=== PATIENT | female | born 1960 | race Caucasian/White ===

== ENCOUNTER → 2019-08-15 15:37 | Outpatient (BNVA) | payer BC, OTHER, SELFPAY | PROVIDERS: Visit Provider Specialist | DX: G31.84 Mild cognitive impairment of uncertain or unknown etiology (principal); F17.210 Nicotine dependence, cigarettes, uncomplicated | CPT/HCPCS: 96116; 99214 ==

== ENCOUNTER 2019-09-05 08:15 | Outpatient (CLI) | payer BC, OTHER, SELFPAY ==
--- NOTE | 2019-09-05 08:21 | CT_ITS ---
WS: [id number] CT ABDOMEN AND PELVIS WITH CONTRAST HISTORY: RIGHT FLANK PAIN, NAUSEA, WT LOSS TECHNIQUE: Imaging performed of the abdomen and pelvis with IV contrast. Single phase imaging of the abdomen. Coronal and sagittal reformats are submitted. All CT scans at [facility] use at least one of these dose optimization techniques: automated exposure control; mA and/or kV adjustment per patient size (includes targeted exams where dose is matched to clinical indication); or iterativ e reconstruction. IV CONTRAST: Omnipaque 300; 95 mL IV. Oral contrast: Yes. DLP: 998.85 mGycm COMPARISON: 07/28/2017 Lower thorax: Chronic emphysema the lung bases. No nodule or mass. Heart is normal size. No hiatal he rnia. Liver/biliary system: Lobulated LEFT hepatic cyst measures 11 mm. Otherwise the liver is negative. No rmal portal vein enhancement. Gallbladder: Normal size gallbladder with numerous stones. No bile duct dilatation. Pancreas: Normal. Spleen: Normal. Adrenal glands: Normal. Right kidney: Normal. Left kidney: Normal. Aorta: Mild atherosclerosis. No aneurysm. Lymphadenopathy: None. Free fluid: None. GI tract: Prior appendectomy. Diffuse fecal retention and constipation. No obstruction. No significan t diverticular disease. Abdominal wall: Unremarkable abdominal wall. No hernia. Pelvis: Atrophic uterus is not well visualized by CT but similar to prior studies. Prominent gonadal veins bilaterally. Bones: Moderate degenerative disc disease at L4-5. Mild degenerative changes at the hip joints. Subch ondral sclerotic changes involving the superior humeral heads probably related to avascular necrosis, similar to the prior study without progression or fragmentation. CT/CT abdomen pelvis w con* [id number] IMPRESSION: 1. Cholelithiasis. Numerous stones in the gallbladder may be causing the patie nt's symptoms. 2. No GI tract obstruction. 3. Prior cholecystectomy. 4. Early changes of avascular necrosis suspected in the femoral heads but unch anged since 07/28/2017. 5. Stable LEFT hepatic cyst.
[2019-09-05] MEDS: iohexol 300 mg/mL 50 mL Btl PO (09:48)
[2019-09-05] MEDS: iohexol 300 mg/mL 100 mL Btl IV (10:06)
== END 2019-09-05 08:16 | disposition home or self-care (01) ==
LOC: RADWPI 08:20
PROVIDERS: Visit Provider Surgery
DX: R10.9 Unspecified abdominal pain (principal); R11.0 Nausea; R63.4 Abnormal weight loss; K80.20 Calculus of gallbladder without cholecystitis without obstruction; K76.89 Other specified diseases of liver
CPT/HCPCS: 74177; Q9967

== ENCOUNTER → 2019-10-31 12:45 | Outpatient (BNVA) | payer BC, OTHER, SELFPAY | PROVIDERS: Visit Provider Specialist | DX: G31.84 Mild cognitive impairment of uncertain or unknown etiology (principal); R56.9 Unspecified convulsions | CPT/HCPCS: 95816 ==

== ENCOUNTER → 2020-01-25 13:57 | Outpatient (BNVA) | payer BC, OTHER, SELFPAY | PROVIDERS: Visit Provider Internal Medicine | DX: E07.9 Disorder of thyroid, unspecified (principal); E53.8 Deficiency of other specified B group vitamins; G31.84 Mild cognitive impairment of uncertain or unknown etiology; R63.4 Abnormal weight loss | CPT/HCPCS: 99204 ==

== ENCOUNTER 2020-01-25 14:45 | Outpatient (CLI) | payer BC, OTHER, SELFPAY ==
[2020-01-25 15:41] LABS: Free T4 Free Thyroxine 1.22 ng/dL (0.82-1.77); Thyroid Stimulating Hormone 1.62 uIU/mL (0.27-4.20)
[2020-01-26 09:43] LABS: T3 Total 110 ng/dL (76-181)
[2020-01-26 17:13] LABS: Thyroglobulin AB 4 IU/mL (< or = 1); Thyroid Peroxidase Antobodies 43 IU/mL (<9)
[2020-01-30 23:03] LABS: TSH Receptor Binding Antibody 1.45 IU/L (< OR = 2.00)
== END 2020-01-25 14:46 | disposition home or self-care (01) ==
LOC: LAB 14:46
PROVIDERS: Visit Provider Internal Medicine
DX: E07.9 Disorder of thyroid, unspecified (principal); G31.84 Mild cognitive impairment of uncertain or unknown etiology
CPT/HCPCS: 36415; 83516; 84439; 84443; 84480; 86376; 86800

== ENCOUNTER → 2020-07-02 12:45 | Outpatient (BNVA) | payer BC, OTHER, SELFPAY | PROVIDERS: Visit Provider Specialist | DX: G31.84 Mild cognitive impairment of uncertain or unknown etiology (principal); F17.210 Nicotine dependence, cigarettes, uncomplicated | CPT/HCPCS: 99215 ==

== ENCOUNTER 2020-07-19 09:32 | Outpatient (CLI) | payer BC, OTHER, SELFPAY ==
--- NOTE | 2020-07-19 08:00 | MR_ITS ---
WS: [id number] MRI HEAD WITHOUT CONTRAST TECHNIQUE: Sagittal T1, T2 axial, T2 axial FLAIR, axial and coronal T1 images, axial susceptibility w eighted imaging, axial diffusion weighted images, and coronal T2 images were obtained. CLINICAL INFORMATION: R41.3 - Other amnesia COMPARISON: MRI and CT July 28, 2017 FINDINGS: No evidence of restricted diffusion to suggest acute ischemia. Ventricular system and basal cisterns are patent. Mild small vessel changes. Moderate parenchymal volume loss. Normal posterior fossa. Norm al vascular flow voids at the skull base. No extra-axial fluid collections. No evidence of mass or ma ss effect. Paranasal sinuses and mastoid air cells are well aerated. Normal posterior nasopharynx. No hemosiderin on susceptibly weighted images. Normal optic chiasm and pituitary infundibulum. Modera te symmetric atrophy involving the temporal lobes and hippocampal formations. No asymmetric hippocamp al atrophy. Cavernous sinuses appear normal. MR/MR head wo con* [id number] IMPRESSION: 1. No evidence of restricted diffusion to suggest acute ischemia. 2. Mild small vessel changes. Moderate parenchymal volume loss. Parenchymal vo lume loss has progressed since 2018. 3. No hemosiderin on the susceptibility weighted images. 4. Moderate symmetric atrophy involving the temporal lobes and hippocampal for mations.
== END 2020-07-19 09:33 | disposition home or self-care (01) ==
LOC: RADSHAW 09:40
PROVIDERS: Visit Provider Specialist
DX: R41.3 Other amnesia (principal); G31.9 Degenerative disease of nervous system, unspecified
CPT/HCPCS: 70551

== ENCOUNTER 2021-09-25 08:11 | Day surgery (SDC) | payer BC, OTHER, SELFPAY ==
[2021-09-25 08:44] VITALS: BP 118/77; PULSE 85; RESP 16; TEMP 37.1; O2SAT 91
[2021-09-25] MEDS: sodium chloride 0.9% 1,000 ML 30 ML IV (08:56)
--- NOTE | 2021-09-25 10:56 | W.PM.OPSUD ---
Surgery/Procedure H&P Update DATE OF PROCEDURE: September 25, 2021 DATE H&P PERFORMED: 09/09/21 CHANGES TO PREVIOUS DOCUMENTATION: none PREOP DIAGNOSIS: abdominal pain PLANNED PROCEDURE: Operation Date: 09/25/21 10:00 Proposed Procedures p EGD [id number],R11.2,R10.9(Not Applicable) - Dinesh Harris DO
[2021-09-25 11:17] VITALS: BP 99/65; PULSE 84; RESP 16; TEMP 37.1; O2SAT 90
--- NOTE | 2021-09-25 11:17 | ANE.PACU2 ---
Documented by User: Hillary Murillo CRNA 09/25/21 11:17 Inpatient post-anesthesia follow up: Airway intact: Yes Vital signs: Temperature 98.8 F Pulse Rate 85 Respiratory Rate 16 Blood Pressure 118/77 Pulse Oximetry 91 Oxygen Delivery Me thod Room Air Oxygen Flow Rate Fraction of Inspir ed Oxygen Hydration adequate: Yes Nausea and vomiting: No Pain level: 1 Mental status: Baseline
[2021-09-25 11:22] VITALS: BP 103/71; PULSE 81; RESP 16; TEMP 36.6; O2SAT 91
[2021-09-25 11:30] VITALS: BP 103/71; PULSE 80; RESP 16; TEMP 36.6; O2SAT 94
--- NOTE | 2021-09-25 14:12 | P.ANESASSM_ITS ---
Pre-Anesthetic Assessment Height/Weight: Height 22.56 m Weight 58.513 kg Temp Pulse Resp BP Pulse Ox 97.8 F 80 16 103/71 94 09/25/21 11:30 09/25/21 11:30 09/25/21 11:30 09/25/21 11:30 09/25/21 11:30 Preop Diagnosis: abdominal pain Operation Date: 09/25/21 10:00 Proposed Procedures p EGD [id number],R11.2,R10.9(Not Applicable) - Dinesh Harris DO Familial anesthetic complications: None Was Beta Ale taken within 24 hours: N/A Was Clonidine taken within 24 hours: N/A Last intake: Intake Last Liquid Date 09/24/21 Last Liquid Time 15:00 Last Solid Date 09/24/21 Last Solid Time 15:00 Social Tobacco and No alcohol Exam alert, oriented x 3, clear to auscultation bilaterally and regular rate & rhythm Airway Submandibular: within normal limits Cervical ROM: within normal limits Mallampati: Class I Comments: Comments: Poor dentition History/ROS No significant complaints Pulmonary None reported CV/HEM None reported None reported Hepatic None reported GI None reported Metabolic Thyroid [place] [facility] None reported Neuropsych Dementia (Alzheimer ) and Seizure Anesthetic Plan ASA status: 2 Anesthesia: Anesthesia Evaluation and General Other: I discussed with the patient and her prior to procedure risks, goals, and benefits of MAC and general anesthesia. We discussed spectrum of MAC anesthesia including conversion to general as well as possibility of recall of intraoperative stimuli including discomfort/pain. consents to proceed with MAC. Risk of > 500 ml blood loss (7ml/kg in children): No Medications/Allergies Home Medications Medication Instructions Recorded Confirmed Last Taken Type galantamine 16 mg 24 hr 16 mg PO QAM #30 cap 09/03/21 09/25/21 09/24/21 Rx capsule,extended release olanzapine 10 mg tablet 10 mg PO DAILY #30 tab 09/03/21 09/25/21 09/24/21 Rx Allergies Allergy/AdvReac Type Severity Reaction Status Date / Time No Known Allergies Allergy Verified 09/09/21 07:57 [facility] Anesthesia Medical History Hypersomnia Loss of weight MCI (mild cognitive impairment) Short-term memory loss Surgical History History of appendectomy History of section History of left knee surgery History of right knee surgery Family History Mother Cancer breast Father Parkinsons Social History (Updated 09/09/21 @ 08:17 by Dinesh Harris DO) Smoking and tobacco status: current every day smoker cigarettes Packs smoked per day: 2 Alcohol intake: current History of recent travel: No Data Anesthesia Cardiac Studies: No Data to Display
== END 2021-09-25 11:50 | disposition home or self-care (01) ==
PROVIDERS: Visit Provider Surgery
PROC: 0DJ08ZZ Inspection of Upper Intestinal Tract, Via Natural or Artificial Opening Endoscopic (ICD-10-PCS; CPT 43235; principal; 2021-09-25 10:00)
DX: R10.9 Unspecified abdominal pain (principal); R11.2 Nausea with vomiting, unspecified; F17.210 Nicotine dependence, cigarettes, uncomplicated
CPT/HCPCS: 43239; J2704; J7030

== ENCOUNTER 2022-01-03 21:31 | Inpatient (IN) | payer BC, OTHER, SELFPAY ==
[2022-01-03 21:39] VITALS: BP 149/89; PULSE 97; RESP 30; O2SAT 77
[2022-01-03 21:42] VITALS: BP 147/95; PULSE 83; RESP 16; O2SAT 97
--- NOTE | 2022-01-03 21:42 | XRR_ITS ---
PROCEDURE INFORMATION: Exam: XR Chest Exam date and time: 01/03/2022 9:54 PM Age: 61 years old Clinical indication: Dyspnea; Additional info: SOB TECHNIQUE: Imaging protocol: Radiologic exam of the chest. Views: 1 view. COMPARISON: CT chest abd pel w con* 07/28/2017 10:16 AM FINDINGS: Lungs: There is mild flattening of the hemidiaphragms and hyperexpansion of lungs compatible with diffuse emphysematous changes. Increased bronchial markings are seen predominant the lower hemithoraces compatible with mild bilateral basilar bronchiectasis. Are some minimal increased interstitial markings seen in the lower hemithoraces likely representing atelectasis. However an interstitial pneumonitis cannot be entirely excluded. Pleural spaces: Unremarkable. No pleural effusion. No pneumothorax. Heart/Mediastinum: Unremarkable. No cardiomegaly. Bones/joints: Unremarkable. XR/XR chest 1V portable [id number] IMPRESSION: 1. There is a background emphysema mild bilateral basilar bronchiectasis. 2. Subtle increased interstitial opacities in hemithoraces may represent atelectasis although an interstitial pneumonitis cannot be entirely excluded.
--- NOTE | 2022-01-03 21:42 | ECG_ITS ---
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 Measurements Intervals [place] Rate: 85 P: 82 AR: 146 QRS: 93 QRSD: 98 T: 78 QT: 361 QTc: 432 Interpretive Statements SINUS RHYTHM with significant baseline artifact RIGHT ATRIAL ENLARGEMENT [0.3mV P-WAVE] LEFT ATRIAL ENLARGEMENT [-0.15mV P-WAVE IN V1/V2] BORDERLINE RIGHT AXIS DEVIATION [QRS AXIS > 90] MODERATE ST DEPRESSION [0.05+ mV ST DEPRESSION] No previous ECG available for comparison Electronically Signed On 01-04-2022 8:36:45 CDT by Devon Otto M.D. [id number]
[2022-01-03 21:52] LABS: ABG PCO2 49.8 mmHg (35-45); ABG PH Result 7.34 (7.35-7.45); Arterial Blood Gas Hematocrit 47.4 % (37-47); Blood Gas Allen Test Pos; Blood Gas Sample Type Arterial; HCO3 ABG 26.7 mmol/L (22-26); HGB O2 Sat 96.4 % (95-100); Methemoglobin 0.5 % (0.4-1.5); Total Hemoglobin 15.5 g/dL (12-16)
[2022-01-03 21:53] LABS: Basophils # 0.1 10^3/uL (0.0-0.1); Basophils % 0.6 %; Eosinophils # 0.4 10^3/uL (0.0-0.8); Eosinophils % 3.4 %; Hematocrit 48.3 % (37.0-47.0); Hemoglobin 15.6 g/dL (11.5-15.3); Lymphocytes # 2.1 10^3/uL (0.8-4.8); Lymphocytes % 20.1 %; Mean Corpuscular HGB Conc 32.3 g/dL (30.0-36.0); Mean Corpuscular Hemoglobin 31.6 pg (28.0-34.0); Mean Platelet Volume 10.1 fL (7.4-10.4); Monocytes # 0.8 10^3/uL (0.2-0.9); Monocytes % 7.3 %; Neutrophils # 7.29 10^3/uL (1.8-7.7); Neutrophils % 68.3 %; Nucleated Red Blood Cells % 0 %; Platelet Count 223 10^3/cmm (130-400); Red Blood Count 4.93 10^6/uL (4.1-5.3); Red Cell Distribution Width 12.9 % (12.1-15.1); White Blood Count 10.7 10^3/uL (4.0-10.0)
[2022-01-03 21:53] LABS: Blood Gas Operator Identificat MONRO; Blood Gas Sample Site Radial, left; Oxygen Device NRB
[2022-01-03] MEDS: magnesium sulfate premix 2 GM/50 ML PIGGYBACK IV (22:05)
[2022-01-03] MEDS: ipratropium-albuterol 3 mL Neb INHALATION (22:05)
[2022-01-03 22:08] VITALS: PULSE 91; RESP 33; O2SAT 93
[2022-01-03 22:08] LABS: D Dimer <= 0.27 ug/mIFEU (0-0.59)
[2022-01-03 22:10] LABS: Lactic Sepsis W/Reflex 1.5 mmol/L (0.5-2.2)
[2022-01-03 22:12] VITALS: BP 140/77; PULSE 78; O2SAT 97
[2022-01-03 22:14] LABS: Troponin(5th) Baseline 7 ng/L (0-10)
[2022-01-03 22:17] VITALS: PULSE 85
[2022-01-03 22:22] LABS: Alanine Aminotransferase 10 U/L (0-33); Albumin Level 4.7 g/dL (3.5-5.2); Alkaline Phosphatase 86 U/L (35-105); Anion Gap 14.7 (5-19); Aspartate Amino Transferase 15 U/L (0-32); Blood Urea Nitrogen 10 mg/dL (8-23); Calcium 9.5 mg/dL (8.5-10.5); Carbon Dioxide 27 mmol/L (22-29); Chloride 106 mmol/L (98-107); Globulin 2.9 g/dL (1.3-4.6); Glomerular Filtration Rate 85.4 mL/min (90-130); Glucose 112 mg/dL (65-115); NT Pro B Type Natriuretic Pept 125 pg/mL (0-125); Osmolality Calculated 298 mOsm/kg (285-295); Potassium 3.7 mmol/L (3.5-5.1); Sodium 144 mmol/L (136-145); Total Bilirubin 0.9 mg/dL (0.15-1.2); Total Protein 7.6 g/dL (6.6-8.7)
[2022-01-03 22:30] VITALS: PULSE 86; RESP 30; O2SAT 96
--- NOTE | 2022-01-03 22:31 | W.ED.SOB ---
HPI - SOB/Dyspnea General: Chief Complaint: Shortness of Breath/Dyspnea Stated Complaint: SOB Time Seen by Provider: 01/03/22 21:38 Source: patient and family History of Present Illness: HPI Narrative: 61-year-old female with no prior history of COPD. She does have a diagnosis of Alzheimer's disease. She became ill earlier today according to her . She was having trouble breathing, that worsened across the evening. She was noticeably wheezing per him. She does not usually use oxygen. She presents in respiratory distress, with pulse ox of 77 on room air MD elicited complaint: shortness of breath and cough Pertinent past history: other Onset (ago): hour(s) Timing: constant and progressively worsening Severity: severe Exacerbating factors: lying flat, exertion and coughing Relieving factors: oxygen Known history of: other Associated symptoms: Reports chest congestion, chest pain, cough, diaphoresis and orthopnea; Deny abdominal pain, fever(s), nausea or vomiting Treatment prior to arrival: none Review of Systems General: Reports: ROS unobtainable due to medical condition Const: Reports: diaphoresis; Denies: fever(s) Card: Reports: chest pain and orthopnea Resp: Reports: chest congestion GI: Denies: abdominal pain, nausea or vomiting PFSH ED PFSH: Medical History Hypersomnia Loss of weight MCI (mild cognitive impairment) Short-term memory loss Surgical History History of appendectomy History of section History of left knee surgery History of right knee surgery Family History Mother Cancer breast Father Parkinsons Social History Smoking and tobacco status: current every day smoker cigarettes Packs smoked per day: 2 Alcohol intake: current History of recent travel: No Physical Exam Const: GENERAL APPEARANCE: cooperative, in distress, ill appearing and frail appearing NUTRITIONAL APPEARANCE: thin HENMT: COMMON NORMALS: normocephalic, atraumatic and Normal external nose present HEAD & SCALP: normocephalic and atraumatic FACE & SINUS: normal facial exam and face symmetric NOSE: Normal external nose present Eye: COMMON NORMALS: Equal, round and reactive pupils present and EOMs intact bilaterally PUPIL: Yes Equal, round and reactive pupils present Neck/C-Spine: GENERAL: Yes trachea midline Chest: CHEST: Yes Symmetrical chest wall rise Resp: EFFORT & INSPECTION: Yes tachypneic, Yes respiratory distress and Yes labored AUSCULTATION: wheezes and diminished lung sounds Cardio: COMMON NORMALS: regular rate RATE: regular rate GI: COMMON NORMALS: Normal to inspection, nondistended, normoactive bowel sounds present, Soft to palpation and non-tender PALPATION: Yes Soft to palpation Extremity: COMMON NORMALS: no pedal edema Neuro: JAYME COMA SCALE: document GCS findings [place] coma scale eye opening: Spontaneous [place] coma scale verbal response: Confused [place] coma scale motor response: Obey commands [place] coma scale total score: 14 Psych: COMMON NORMALS: cooperative Skin: COMMON NORMALS: no rashes or lesions noted GENERAL SKIN EXAM: no rashes or lesions noted Course Vital Signs: Vital signs: Vital Signs Pulse Rate 86 01/03/22 22:30 Respiratory Rate 33 H 01/03/22 22:08 Blood Pressure 140/77 01/03/22 22:12 Pulse Oximetry 96 01/03/22 22:30 Oxygen Delivery Me thod 01/03/22 22:08 Oxygen Flow Rate 6 01/03/22 22:08 Fraction of Inspir ed Oxygen 80 01/03/22 22:30 MDM - SOB/Dyspnea Medical Decision Making 61-year-old female presenting in respiratory distress. She was given DuoNeb treatment, magnesium, Solu-Medrol. She arrived and was placed on 15 L nonrebreather oxygenation. Despite this, her PO2 is only 115. She is slightly acidotic on blood gas testing with an elevated PCO2. She is improved after BiPAP treatment, and remains on it here in the ER. Chest x-ray shows some bronchiectasis. Her white blood cell count is 10. Her hemoglobin is 15. Her BMP is normal. Her BNP is normal as well. She will go to the ICU for acute hypoxic hypercapnic respiratory failure. COVID-19 PCR is pending. She will be covered with antibiotics after blood cultures. Lab Data : 01/03/22 21:45 01/03/22 21:45 Labs/Radiology: Radiology Impressions Chest X-Ray 01/03/22 21:42 IMPRESSION: 1. There is a background emphysema mild bilateral basilar bronchiectasis. 2. Subtle increased interstitial opacities in hemithoraces may represent atelectasis although an interstitial pneumonitis cannot be entirely excluded. Laboratory Results WBC 10.7 10^3/uL (4.0-10.0) H 01/03/22 21:45 RBC 4.93 10^6/uL (4.1-5.3) 01/03/22 21:45 Hgb 15.6 g/dL (11.5-15.3) H 01/03/22 21:45 Hct 48.3 % (37.0-47.0) H 01/03/22 21:45 MCV 98.0 fl (81-99) 01/03/22 21:45 MCH 31.6 pg (28.0-34.0) 01/03/22 21:45 MCHC 32.3 g/dL (30.0-36.0) 01/03/22 21:45 RDW 12.9 % (12.1-15.1) 01/03/22 21:45 Plt Count 223 10^3/cmm (130-400) 01/03/22 21:45 MPV 10.1 fL (7.4-10.4) 01/03/22 21:45 Neut % (Auto) 68.3 % 01/03/22 21:45 Lymph % (Auto) 20.1 % 01/03/22 21:45 [place] % (Auto) 7.3 % 01/03/22 21:45 Eos % (Auto) 3.4 % 01/03/22 21:45 Baso % (Auto) 0.6 % 01/03/22 21:45 Neut # (Auto) 7.29 10^3/uL (1.8-7.7) 01/03/22 21:45 Lymph # (Auto) 2.1 10^3/uL (0.8-4.8) 01/03/22 21:45 [place] # (Auto) 0.8 10^3/uL (0.2-0.9) 01/03/22 21:45 Eos # (Auto) 0.4 10^3/uL (0.0-0.8) 01/03/22 21:45 Baso # (Auto) 0.1 10^3/uL (0.0-0.1) 09/17/22 21:45 Nucleated RBC % (auto) 0 % 01/03/22 21:45 Nucleated RBCs # 0.0 /100WBC 01/03/22 21:45 D-Dimer <= 0.27 ug/mIFEU (0-0.59) 01/03/22 21:45 Specimen Type Arterial 01/03/22 21:40 Sample Site Radial, left 01/03/22 21:40 ABG pH 7.34 (7.35-7.45) L 01/03/22 21:40 ABG pCO2 49.8 mmHg (35-45) H 01/03/22 21:40 ABG pO2 115.0 mmHg (80.0-100.0) H 01/03/22 21:40 ABG HCO3 26.7 mmol/L (22-26) H 01/03/22 21:40 ABG Base Excess 0.0 mmol/L (-2.0-2.0) 01/03/22 21:40 Jermaine Test Pos 01/03/22 21:40 Hematocrit 47.4 % (37-47) H 01/03/22 21:40 Hgb O2 Saturation 96.4 % (95-100) 01/03/22 21:40 Carboxyhemoglobin 2.0 %THgb (0.4-20.1) 01/03/22 21:40 Methemoglobin 0.5 % (0.4-1.5) 01/03/22 21:40 Total Hemoglobin 15.5 g/dL (12-16) 01/03/22 21:40 O2 Delivery Device Nrb 01/03/22 21:40 O2 Liters/Min 15.0 % 01/03/22 21:40 FiO2 100.0 % 01/03/22 21:40 Pharmaceutical Worker ID Monro 01/03/22 21:40 Sodium 144 mmol/L (136-145) 01/03/22 21:45 Potassium 3.7 mmol/L (3.5-5.1) 01/03/22 21:45 Chloride 106 mmol/L (98-107) 01/03/22 21:45 Carbon Dioxide 27 mmol/L (22-29) 01/03/22 21:45 Anion Gap 14.7 (5-19) 01/03/22 21:45 BUN 10 mg/dL (8-23) 01/03/22 21:45 Creatinine 0.7 mg/dL (0.5-0.9) 01/03/22 21:45 GFR Calculation 85.4 mL/min (90-130) L 01/03/22 21:45 Glucose 112 mg/dL (65-115) 01/03/22 21:45 Calculated Osmolality 298 mOsm/kg (285-295) H 01/03/22 21:45 Lactic Acid 1.5 mmol/L (0.5-2.2) 01/03/22 21:45 Calcium 9.5 mg/dL (8.5-10.5) 01/03/22 21:45 Total Bilirubin 0.9 mg/dL (0.15-1.2) 01/03/22 21:45 AST 15 U/L (0-32) 01/03/22 21:45 ALT 10 U/L (0-33) 01/03/22 21:45 Alkaline Phosphatase 86 U/L (35-105) 01/03/22 21:45 Troponin T Baseline 7 ng/L (0-10) 01/03/22 21:45 NT-Pro-B Natriuret Pep 125 pg/mL (0-125) 01/03/22 21:45 Total Protein 7.6 g/dL (6.6-8.7) 01/03/22 21:45 Albumin 4.7 g/dL (3.5-5.2) 01/03/22 21:45 Globulin 2.9 g/dL (1.3-4.6) 01/03/22 21:45 Critical Care Time Critical Care Time: Critical Care Time: Yes Total Critical Care Time: 35 Attestation: This case had a high probability of a clinically significant, sudden, or life threatening deterioration of this patient's condition which required my full and direct attention, intervention and personal management. 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
--- NOTE | 2022-01-03 23:20 | CTR_ITS ---
PROCEDURE INFORMATION: Exam: CTA Chest With Contrast Exam date and time: 01/03/2022 11:41 PM Age: 61 years old Clinical indication: Shortness of breath; Additional info: SOB TECHNIQUE: Imaging protocol: Computed tomographic angiography of the chest with contrast. 3D rendering (Not supervised by radiologist): MIP and/or 3D reconstructed images were created by the technologist. Radiation optimization: All CT scans at this facility use at least one of these dose optimization techniques: automated exposure control; mA and/or kV adjustment per patient size (includes targeted exams where dose is matched to clinical indication); or iterative reconstruction. Contrast material: [id number]; Contrast volume: 80 ml; Contrast route: INTRAVENOUS (IV); COMPARISON: CT chest abd pel w con* 07/28/2017 10:16 AM RADIATION DOSE METRICS: Total DLP (mGy-cm): 281.07 FINDINGS: Pulmonary arteries: Normal. No pulmonary emboli. Aorta: Unremarkable. No aortic aneurysm. No aortic dissection. Lungs: There is a background of centrilobular emphysema, bronchiectasis and mild pulmonary fibrosis. Pleural spaces: Unremarkable. No pneumothorax. No pleural effusion. Heart: Unremarkable. No cardiomegaly. No pericardial effusion. Lymph nodes: Unremarkable. No enlarged lymph nodes. Bones/joints: Unremarkable. No acute fracture. Soft tissues: Unremarkable. CT/CT angio chest PE protcl [id number] IMPRESSION: There is no evidence for pulmonary emboli. There are no acute chest findings.
--- NOTE | 2022-01-03 23:21 | PM.HP ---
Providers/Chief Complaint Admitting Physician: Joel Louis MD Chief Complaint: SOB History of Present Illness Radha Cordova is a 61 year old female with a past medical history of Alzheimer's disease, history of emphysema, heavy smoker, who presents to [facility] for shortness of breath, wheezing, cough. Currently patient is alert to person, to place, not to time, she is currently on BiPAP, very mild respiratory distress, tachypneic, mild intercostal retractions, nasal flaring, is at bedside, was a history was obtained from him. Has been tells me that at baseline patients can sometimes carry conversations, she can recognize her , she can ambulate, does have early onset dementia, which is progressive. He tells me that early in the morning today, she was complaining of shortness of breath, wheezing, she is a heavy smoker, and throughout the day her shortness of breath and wheezing significantly worsened. She is now short of breath at rest, has a cough, no fevers, no chills, has received all COVID-19 vaccinations. No chest pain complaints, no extremity edema. No hemoptysis, she denies any calf pain, no calf swelling. Review of Systems Eyes: Denies: change in vision Card: Denies: chest pain Resp: Reports: dyspnea and non-productive cough GI: Denies: abdominal pain Medications/Allergies Home Medications Medication Instructions Recorded Confirmed Last Taken Type galantamine 16 mg 24 hr 16 mg PO QAM #30 caps 09/03/21 09/25/21 09/24/21 Rx capsule,extended release olanzapine 10 mg tablet 10 mg PO DAILY #30 tabs 09/03/21 09/25/21 09/24/21 Rx Allergies Allergy/AdvReac Type Severity Reaction Status Date / Time No Known Allergies Allergy Verified 09/09/21 07:57 PFSH Acute PFSH: Medical History Hypersomnia Loss of weight MCI (mild cognitive impairment) Short-term memory loss Surgical History History of appendectomy History of section History of left knee surgery History of right knee surgery Family History Mother Cancer breast Father Parkinsons Social History Smoking and tobacco status: current every day smoker cigarettes Packs smoked per day: 2 Alcohol intake: current History of recent travel: No Vitals/I&O/Wt Last Vital Signs Pulse 86 01/03/22 22:30 Resp 33 H 01/03/22 22:08 BP 147/95 01/03/22 21:42 Pulse Ox 96 01/03/22 22:30 O2 Del Method 01/03/22 22:08 O2 Flow Rate 6 01/03/22 22:08 FiO2 80 01/03/22 22:30 01/03/22 01/03/22 01/04/22 14:59 22:59 06:59 Intake Total 50 / 50 Balance 50 / 50 Physical Exam Const: COMMON NORMALS: no acute distress GENERAL APPEARANCE: cooperative ORIENTATION/CONSCIOUSNESS: Yes awake, Yes oriented to person and Yes oriented to place; not oriented to time HENMT: COMMON NORMALS: normocephalic HEAD & SCALP: normocephalic Eye: COMMON NORMALS: Equal, round and reactive pupils present and EOMs intact bilaterally Neck/C-Spine: COMMON NORMALS: no JVD Resp: EFFORT & INSPECTION: Yes tachypneic, Yes retractions and Yes uses accessory muscles AUSCULTATION: wheezes OTHER: Intercostal, suprasternal retractions, nasal flaring, able to say a couple of words, nasal flaring, wheezing in all lung yepez Cardio: COMMON NORMALS: regular rate, regular rhythm, S1 normal heart sound present and S2 normal heart sound present RATE: regular rate RHYTHM: regular rhythm HEART SOUNDS: S1 normal heart sound present and S2 normal heart sound present GI: COMMON NORMALS: Normal to inspection, nondistended, normoactive bowel sounds present, Soft to palpation, non-tender, No hepatosplenomegaly present, no masses and no bruits PALPATION: Yes Soft to palpation and Yes No hepatosplenomegaly present Extremity: COMMON NORMALS: no pedal edema Psych: COMMON NORMALS: mental status grossly normal Data : 01/03/22 21:45 01/03/22 21:45 Micro: Microbiology 01/03/22 22:30 Blood Culture - Preliminary Blood SPECIMEN COLLECTED 01/03/22 22:28 Blood Culture - Preliminary Blood SPECIMEN COLLECTED A&P Assessment and plan (1) Acute respiratory failure with hypoxia: Status: Acute Plan Acute hypoxic respiratory failure -Secondary to COPD exacerbation Plan -Still in mild respiratory distress, status post breathing treatment steroids, BiPAP but overall improving -Monitor in ICU -Monitor respiratory status closely -Continue BiPAP -COVID-19 testing, CT angiogram of the chest -DuoNebs every 4 hours, budesonide -Solu-Medrol 40 every 8 hours -Does have interstitial opacities, potential infectious etiology, potential pneumonia, start Rocephin azithromycin -Sputum cultures, blood cultures - -DNR/DNI -Lovenox for DVT prophylaxis Attestations Medical Necessity Statement*: Patient requires hospitalization, inpatient, greater than 2 midnights, for acute hypoxic respiratory failure Coding Level of Care Code Acute Barge Pilot for Josué Ash Diagnoses Acute respiratory failure with hypoxia J96.01
--- NOTE | 2022-01-03 23:33 | ECG_ITS ---
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 Measurements Intervals [place] Rate: 90 P: 88 OR: 144 QRS: 90 QRSD: 98 T: 80 QT: 371 QTc: 454 Interpretive Statements SINUS RHYTHM WITH OCCASIONAL SUPRAVENTRICULAR PREMATURE COMPLEXES RIGHT ATRIAL ENLARGEMENT [0.3mV P-WAVE] POSSIBLE LEFT ATRIAL ENLARGEMENT [-0.1mV P-WAVE IN V1/V2] MODERATE ST DEPRESSION [0.05+ mV ST DEPRESSION] Compared to ECG 01/03/2022 22:02:27 No significant changes Electronically Signed On 01-04-2022 8:39:34 CDT by Devon Otto M.D. [id number]
[2022-01-03] MEDS: iohexol 350 mg/mL 100 mL Btl IV (23:46)
[2022-01-03] MEDS: cefTRIAXone 1,000 MG in sodium chloride 0.9% (plus) 50 ML 100 MG IV (23:50)
[2022-01-03 23:56] VITALS: BMI 17.0
[2022-01-04] VITALS (77 sets, daily range): BP systolic 93–132; BP diastolic 58–84; PULSE 0–154; RESP 10–39; TEMP 36.5–36.6; O2SAT 90–99
--- NOTE | 2022-01-04 00:10 | PC.NURSE ---
Transfer Note Patient transferred to ICU from ER via stretcher. Handoff received from RIKC Decker. Patient oriented to environment and equipment. Covering service notified. Orders reviewed and will continue to monitor. Family and/or sales representative door to door notified. Patient transferred on CPAP 65% FiO2 & no wounds/skin issues noted at this time. Upon transfer patient is alert to self only, she is confused but redirects easily. All patient belongings placed at bedside.
[2022-01-04 00:41] LABS: Troponin 5 2HR 7.03 ng/L (0-10)
[2022-01-04] MEDS: pantoprazole 40 mg SDV IVP ×2 (00:51→23:55)
[2022-01-04 00:52] LABS: Adenovirus Not Detected (NOT DETECT); Chlamydia Pneumoniae Not Detected (NOT DETECT); Coronavirus 229E,HKU1,NL63,OC4 Not Detected (NOT DETECT); Human Metapneumovirus Not Detected (NOT DETECT); Human Rhinovirus/Enterovirus Not Detected (NOT DETECT); Influenza A Not Detected (NOT DETECT); Influenza A H1 Not Detected (NOT DETECT); Influenza A H1-2009 Not Detected (NOT DETECT); Influenza A H3 Not Detected (NOT DETECT); Influenza B Not Detected (NOT DETECT); Mycoplasma Pneumoniae Not Detected (NOT DETECT); Parainfluenza Virus Type 1 Not Detected (NOT DETECT); Parainfluenza Virus Type 2 Not Detected (NOT DETECT); Parainfluenza Virus Type 3 Not Detected (NOT DETECT); Parainfluenza Virus Type 4 Not Detected (NOT DETECT); Respiratory Syncytial Virus A Not Detected (NOT DETECT); Respiratory Syncytial Virus B Not Detected (NOT DETECT); SARS-COV-2 Not Detected (NOT DETECT)
[2022-01-04] MEDS: enoxaparin 40 mg/0.4 mL Syringe SUBCUT ×2 (00:53→23:55)
[2022-01-04] MEDS: azithromycin 500 MG in sodium chloride 0.9% 250 ML 250 MG IV ×2 (00:57→23:55)
[2022-01-04 01:07] LABS: Troponin 5 2HR Delta 0.03 ABS# (0-10)
[2022-01-04] MEDS: ipratropium-albuterol 3 mL Neb INHALATION ×5 (03:01→20:12)
--- NOTE | 2022-01-04 03:08 | ECG_ITS ---
[facility] Test Date: 2022-01-04 Pat Name: Radha Cordova Department: Room: ICU12 Gender: Female Certified Histologic Technician: : 1960 Requested By: Christophe Laureano Order Number: [id number] MD: Devon Otto M.D. Measurements Intervals [place] Rate: 66 P: 74 [place]: 150 QRS: 75 QRSD: 102 T: 67 QT: 417 QTc: 437 Interpretive Statements SINUS RHYTHM POSSIBLE LEFT ATRIAL ENLARGEMENT [-0.1mV P-WAVE IN V1/V2] Compared to ECG 01/03/2022 23:33:04 ST (T wave) deviation no longer present Electronically Signed On 01-04-2022 8:39:58 CDT by Devon Otto M.D. [id number]
[2022-01-04 05:23] LABS: Basophils % 0.1 %; Eosinophils % 0.1 %; Hematocrit 43.1 % (37.0-47.0); Hemoglobin 13.9 g/dL (11.5-15.3); Lymphocytes # 0.4 10^3/uL (0.8-4.8); Lymphocytes % 4.7 %; Mean Corpuscular HGB Conc 32.3 g/dL (30.0-36.0); Mean Corpuscular Hemoglobin 31.8 pg (28.0-34.0); Mean Corpuscular Volume 98.6 fl (81-99); Mean Platelet Volume 11.3 fL (7.4-10.4); Monocytes # 0.1 10^3/uL (0.2-0.9); Monocytes % 0.7 %; Neutrophils # 6.99 10^3/uL (1.8-7.7); Neutrophils % 93.7 %; Nucleated Red Blood Cells % 0 %; Platelet Count 196 10^3/cmm (130-400); Red Blood Count 4.37 10^6/uL (4.1-5.3); White Blood Count 7.5 10^3/uL (4.0-10.0)
[2022-01-04 05:44] LABS: Anion Gap 15.7 (5-19); Blood Urea Nitrogen 9 mg/dL (8-23); Calcium 9.1 mg/dL (8.5-10.5); Carbon Dioxide 25 mmol/L (22-29); Chloride 105 mmol/L (98-107); Creatinine Clr Calc Pharmacy 94.6475; Glucose 158 mg/dL (65-115); Osmolality Calculated 296 mOsm/kg (285-295); Potassium 3.7 mmol/L (3.5-5.1); Sodium 142 mmol/L (136-145)
--- NOTE | 2022-01-04 06:34 | PC.NURSE ---
Shift Note Frequent safety and comfort rounds continue. Orders and/or nursing care completed as indicated. Patient monitored for response to intervention and treatment(s). Education provided includes oxygen requirements and treatment plan. Patient needs reinforcement teaching. Patient had an uneventful shift, remains on BIPAP 65% FiO2 and no wounds/skin issues noted at this time. Patient confused and only alert to self at this time, frequently reoriented to environment and surroundings. Voided 200 mls of urine overnight. Will continue to monitor.
--- NOTE | 2022-01-04 07:08 | PC.NURSE ---
bedside report received from Pam CABRERA
--- NOTE | 2022-01-04 08:00 | PC.NURSE ---
patient feels as though they will be bothersome to her but will consider wearing them maybe a little later.
[2022-01-04] MEDS: budesonide 0.5 mg/2 mL Neb INHALATION ×2 (09:20→22:00)
[2022-01-04] MEDS: OLANZapine 10 mg TABLET PO (10:02)
--- NOTE | 2022-01-04 10:34 | P.PN_ITS ---
Subjective Subjective: This morning she is doing little bit better. She has advanced dementia and has difficulty providing ROS. Her assists, currently at her bedside. She denies pain or discomfort. Breathing currently comfortable on current level of oxygen. states normally does not use supplemental oxygen at home. Vitals/I&O/Wt Last Vital Signs Temp 97.8 F 01/04/22 05:25 Pulse 92 01/04/22 08:00 Resp 23 H 01/04/22 08:00 BP 109/71 01/04/22 08:00 Pulse Ox 92 01/04/22 08:00 O2 Del Method 01/04/22 08:00 O2 Flow Rate 4 01/04/22 08:00 FiO2 65 01/04/22 06:00 01/03/22 01/04/22 01/04/22 22:59 06:59 14:59 Intake Total 50 / 50 350 / 400 180 / 180 Output Total 200 / 200 Balance 50 / 50 150 / 200 180 / 180 Weight last 48 hrs Weight 60.129 kg Weight 54.431 kg Physical Exam Const: COMMON NORMALS: alert; negative for patient oriented x3 GENERAL APPEARANCE: cooperative ORIENTATION/CONSCIOUSNESS: Yes awake HENMT: COMMON NORMALS: oropharynx normal Neck/C-Spine: COMMON NORMALS: no JVD Resp: COMMON NORMALS: normal respiratory effort AUSCULTATION: wheezes and diminished lung sounds Cardio: COMMON NORMALS: no JVD, regular rhythm, S1 normal heart sound present, S2 normal heart sound present and No murmurs present (Cardio) RHYTHM: regular rhythm HEART SOUNDS: S1 normal heart sound present and S2 normal heart sound present GI: COMMON NORMALS: Normal to inspection, nondistended, normoactive bowel sounds present, Soft to palpation and non-tender PALPATION: Yes Soft to palpation Extremity: COMMON NORMALS: no joint enlargement and no pedal edema Neuro: COMMON NORMALS: moves all extremities; negative for patient oriented x3 SENSORIUM/ORIENTATION: Yes alert Skin: COMMON NORMALS: no rashes or lesions noted GENERAL SKIN EXAM: no rashes or lesions noted Data : 01/04/22 04:14 01/04/22 04:14 Micro: Microbiology 01/03/22 22:30 Blood Culture - Preliminary Blood SPECIMEN COLLECTED 01/03/22 22:28 Blood Culture - Preliminary Blood SPECIMEN COLLECTED A&P Assessment and plan (1) Acute respiratory failure with hypoxia: Showing some gradual improvement. Weaned off BiPAP. Requiring 4 L nasal cannula supplemental oxygen. Not normally on supplemental oxygen at home. Cannot provide reliable ROS, but does appear to state comfortable with current support. Continue IV steroid, empiric antibiotics, breathing treatments. Oxyge n support. Wean down as tolerating. BiPAP as needed. Follow-up sputum culture. Continue care on medical floor. Discussed with her CTA results without PE, but with noted background of centrilobular emphysema, bronchiectasis and mild pulmonary fibrosis. Consider additional outpatient follow-up depending on goals of care. Consider PFT. Suspect undiagnosed COPD, possibly pulmonary fibrosis. Currently severe COPD exacerbation. Status: Acute Plan Dementia Smoking addiction: Nicotine replacement as needed. Attestations Medical Necessity Statement*: Continue admission for assessment and management of acute hypoxic respiratory failure with underlying likely undiagnosed underlying lung disease currently with severe COPD exacerbation. Coding Level of Care Code Acute Assistant Professor Of Life Sciences for Dahliaakhil Ash Exam Comprehensive Diagnoses Acute respiratory failure with hypoxia J96.01
[2022-01-04] MEDS: nicotine 4 mg lozenge MUCOUS MEM ×2 (13:15→19:11)
--- NOTE | 2022-01-04 17:05 | PC.NURSE ---
processing transfer orders at this time because we are still awaiting a [facility] at this time.
[2022-01-04] MEDS: cefTRIAXone 1,000 MG in sodium chloride 0.9% (plus) 50 ML 100 MG IV (23:55)
[2022-01-05] VITALS (14 sets, daily range): BP systolic 89–119; BP diastolic 59–80; PULSE 57–79; RESP 16–32; TEMP 36.6–36.8; O2SAT 86–97
[2022-01-05] MEDS: acetaminophen 325 mg Tablet 650 MG PO (01:07)
[2022-01-05] MEDS: morphine 4 mg/mL SDV 1 mL 1 MG IVP (02:24)
[2022-01-05] MEDS: nicotine 4 mg lozenge MUCOUS MEM (02:24)
[2022-01-05] MEDS: ipratropium-albuterol 3 mL Neb INHALATION ×3 (03:21→12:11)
[2022-01-05 03:53] LABS: Basophils % 0.2 %; Hematocrit 42.7 % (37.0-47.0); Hemoglobin 13.4 g/dL (11.5-15.3); Lymphocytes # 0.6 10^3/uL (0.8-4.8); Lymphocytes % 5.4 %; Mean Corpuscular HGB Conc 31.4 g/dL (30.0-36.0); Mean Corpuscular Hemoglobin 31.4 pg (28.0-34.0); Mean Platelet Volume 10.9 fL (7.4-10.4); Monocytes # 0.4 10^3/uL (0.2-0.9); Monocytes % 3.2 %; Neutrophils % 90.6 %; Nucleated Red Blood Cells % 0 %; Platelet Count 193 10^3/cmm (130-400); Red Blood Count 4.27 10^6/uL (4.1-5.3); Red Cell Distribution Width 13.2 % (12.1-15.1); White Blood Count 11.2 10^3/uL (4.0-10.0)
[2022-01-05 04:20] LABS: Anion Gap 14.9 (5-19); Blood Urea Nitrogen 14 mg/dL (8-23); Calcium 9.3 mg/dL (8.5-10.5); Carbon Dioxide 25 mmol/L (22-29); Chloride 108 mmol/L (98-107); Creatinine Clr Calc Pharmacy 94.6475; Glucose 135 mg/dL (65-115); Osmolality Calculated 301 mOsm/kg (285-295); Potassium 3.9 mmol/L (3.5-5.1); Sodium 144 mmol/L (136-145)
--- NOTE | 2022-01-05 05:10 | PC.NURSE ---
REPORT called to RICK Zhang on med surg.
[2022-01-05] MEDS: budesonide 0.5 mg/2 mL Neb INHALATION (08:14)
[2022-01-05] MEDS: OLANZapine 10 mg TABLET PO (08:29)
--- NOTE | 2022-01-05 10:50 | PM.DCS ---
Discharge Providers Date of Admission: 01/03/22 23:07 Date of Discharge: January 05, 2022 Attending Provider at Admission: Joel Louis MD Attending Provider at Discharge: Ceferino Dawkins MD Diagnoses at Discharge Discharge Diagnosis (1) Acute respiratory failure with hypoxia: Status: Acute Reason for Visit Reason for Visit: SOB Hospital Course Hospital Course 61-year-old lady with early onset dementia, living with her was brought in due to acute hypoxic respiratory failure, not formally diagnosed with lung disease in the past, but does appear to have centrilobular emphysema, possibly early pulmonary fibrosis on CTA. No PE. She has been gradually weaned off from BiPAP to 4 L nasal cannula. At the time of discharge I will give her trilogy, albuterol, continue her olanzapine and give her referral to see Dr. Rodriguez for evaluation of COPD. I will only give her 3 more days of azithromycin for anti-inflammatory effect. Patient does look cachectic and malnourished. is in agreement with the plan, all questions were answered to his satisfaction. He wants to take her home. Physical Exam Narrative: Patient is able to follow commands, currently on 4 L nasal cannula Awake and alert Cachectic, malnourished S1, S2 Abdomen soft Bilateral breath sounds with mild rhonchi at the base of the lungs otherwise clear to auscultation No severe wheezing noted EOMI, PERRLA Nonfocal neuro exam Discharge Data Studies Completed and Pending Completed Studies During Hospitalization Category Date Time Status CT angio chest PE protcl [id number] Stat Cat Scan 01/03/22 23:20 Completed XR chest 1V portable [id number] Stat Exams 01/03/22 21:42 Completed Pending at discharge Category Date Time Status Basic Metabolic Panel AM LABS Lab 01/06/22 04:00 Ordered Basic Metabolic Panel AM LABS Lab 01/07/22 04:00 Ordered Blood Culture Stat Lab 01/03/22 22:30 Results Complete Blood Count w/Auto AM LABS Lab 01/06/22 04:00 Ordered Complete Blood Count w/Auto AM LABS Lab 01/07/22 04:00 Ordered Sputum Culture and Gram Stain Stat Lab 01/03/22 21:42 Uncollected Radiology Impressions Chest X-Ray 01/03/22 21:42 IMPRESSION: 1. There is a background emphysema mild bilateral basilar bronchiectasis. 2. Subtle increased interstitial opacities in hemithoraces may represent atelectasis although an interstitial pneumonitis cannot be entirely excluded. Chest CTA 01/03/22 23:20 IMPRESSION: There is no evidence for pulmonary emboli. There are no acute chest findings. Laboratory Results WBC 11.2 10^3/uL (4.0-10.0) H 01/05/22 03:17 RBC 4.27 10^6/uL (4.1-5.3) 01/05/22 03:17 Hgb 13.4 g/dL (11.5-15.3) 01/05/22 03:17 Hct 42.7 % (37.0-47.0) 01/05/22 03:17 MCV 100.0 fl (81-99) H 01/05/22 03:17 MCH 31.4 pg (28.0-34.0) 01/05/22 03:17 MCHC 31.4 g/dL (30.0-36.0) 01/05/22 03:17 RDW 13.2 % (12.1-15.1) 01/05/22 03:17 Plt Count 193 10^3/cmm (130-400) 01/05/22 03:17 MPV 10.9 fL (7.4-10.4) H 01/05/22 03:17 Neut % (Auto) 90.6 % 01/05/22 03:17 Lymph % (Auto) 5.4 % 01/05/22 03:17 [place] % (Auto) 3.2 % 01/05/22 03:17 Eos % (Auto) 0.0 % 01/05/22 03:17 Baso % (Auto) 0.2 % 01/05/22 03:17 Neut # (Auto) 10.10 10^3/uL (1.8-7.7) H 01/05/22 03:17 Lymph # (Auto) 0.6 10^3/uL (0.8-4.8) L 01/05/22 03:17 [place] # (Auto) 0.4 10^3/uL (0.2-0.9) 01/05/22 03:17 Eos # (Auto) 0.0 10^3/uL (0.0-0.8) 01/05/22 03:17 Baso # (Auto) 0.0 10^3/uL (0.0-0.1) 01/05/22 03:17 Nucleated RBC % (auto) 0 % 01/05/22 03:17 Nucleated RBCs # 0.0 /100WBC 01/05/22 03:17 D-Dimer <= 0.27 ug/mIFEU (0-0.59) 01/03/22 21:45 Specimen Type Arterial 01/03/22 21:40 Sample Site Radial, left 01/03/22 21:40 ABG pH 7.34 (7.35-7.45) L 01/03/22 21:40 ABG pCO2 49.8 mmHg (35-45) H 01/03/22 21:40 ABG pO2 115.0 mmHg (80.0-100.0) H 01/03/22 21:40 ABG HCO3 26.7 mmol/L (22-26) H 01/03/22 21:40 ABG Base Excess 0.0 mmol/L (-2.0-2.0) 01/03/22 21:40 Jermaine Test Pos 01/03/22 21:40 Hematocrit 47.4 % (37-47) H 01/03/22 21:40 Hgb O2 Saturation 96.4 % (95-100) 01/03/22 21:40 Carboxyhemoglobin 2.0 %THgb (0.4-20.1) 01/03/22 21:40 Methemoglobin 0.5 % (0.4-1.5) 01/03/22 21:40 Total Hemoglobin 15.5 g/dL (12-16) 01/03/22 21:40 O2 Delivery Device Nrb 01/03/22 21:40 O2 Liters/Min 15.0 % 01/03/22 21:40 FiO2 100.0 % 01/03/22 21:40 Heavy Equipment Operator Apprentice ID [place] 01/03/22 21:40 Sodium 144 mmol/L (136-145) 01/05/22 03:17 Potassium 3.9 mmol/L (3.5-5.1) 01/05/22 03:17 Chloride 108 mmol/L (98-107) H 01/05/22 03:17 Carbon Dioxide 25 mmol/L (22-29) 01/05/22 03:17 Anion Gap 14.9 (5-19) 01/05/22 03:17 BUN 14 mg/dL (8-23) 01/05/22 03:17 Creatinine 0.6 mg/dL (0.5-0.9) 01/05/22 03:17 GFR Calculation 102.0 mL/min (90-130) 01/05/22 03:17 Glucose 135 mg/dL (65-115) H 01/05/22 03:17 Calculated Osmolality 301 mOsm/kg (285-295) H 01/05/22 03:17 Lactic Acid 1.5 mmol/L (0.5-2.2) 01/03/22 21:45 Calcium 9.3 mg/dL (8.5-10.5) 01/05/22 03:17 Total Bilirubin 0.9 mg/dL (0.15-1.2) 01/03/22 21:45 AST 15 U/L (0-32) 01/03/22 21:45 ALT 10 U/L (0-33) 01/03/22 21:45 Alkaline Phosphatase 86 U/L (35-105) 01/03/22 21:45 Troponin T Baseline 7 ng/L (0-10) 01/03/22 21:45 Troponin T 120 Minute 7.03 ng/L (0-10) 01/04/22 00:02 Delta Troponin T 0.03 ABS# (0-10) 01/04/22 00:02 Troponin T Hi Sens 6Hr 6.00 ng/L (0-10) 01/04/22 04:14 Troponin T Hi Sens 6Hr Delta -1.00 ng/L (0-12) L 01/04/22 04:14 NT-Pro-B Natriuret Pep 125 pg/mL (0-125) 01/03/22 21:45 Total Protein 7.6 g/dL (6.6-8.7) 01/03/22 21:45 Albumin 4.7 g/dL (3.5-5.2) 01/03/22 21:45 Globulin 2.9 g/dL (1.3-4.6) 01/03/22 21:45 Coronavirus 229E (PCR) Not detected (NOT DETECT) 01/03/22 22:09 SARS-CoV-2 (PCR) Not detected (NOT DETECT) 01/03/22 22:09 Vitals Last Vital Signs Temp 98.2 F 01/05/22 08:00 Pulse 57 L 01/05/22 08:00 Resp 16 01/05/22 08:00 BP 119/80 01/05/22 08:00 Pulse Ox 95 01/05/22 08:00 O2 Del Method 01/05/22 08:00 O2 Flow Rate 5 01/05/22 08:00 FiO2 65 01/04/22 06:00 Discharge Plan Discharge Patient Disposition: Home Condition: Stable Prescriptions: New albuterol sulfate 90 mcg/actuation HFA aerosol inhaler 2 inh inhalation Q8H PRN (Reason: shortness of breath or wheezing) Qty: 6.7 0RF azithromycin 500 mg tablet 500 mg PO DAILY 3 Days Qty: 3 0RF Trelegy Ellipta 100-62.5-25 mcg blister with device 1 inh inhalation DAILY Qty: 28 0RF olanzapine 5 mg tablet 5 mg PO QPM Qty: 30 3RF Continued galantamine 16 mg capsule,ext rel. pellets 24 hr 16 mg PO QAM Qty: 30 5RF Rx Instructions: administer with breakfast olanzapine 10 mg tablet 10 mg PO DAILY Qty: 30 5RF Discharge Orders: Discharge Order (Routine); Ordered 01/05/22 Ordered By: Ceferino Dawkins Referrals: DatarGabe MD [Physician] - 7-10 days Discharge Diet: Cardiac Discharge Activity: Increase activity as tolerated Patient Instructions: Opioid Safety Discharge Attestations Time Spent in Discharge Care*: less than 30 min Quality Metrics Clinical Quality Measures [ No reported AMI, CVA or VTE this stay] Coding Level of Care Code Acute Chg FW DC note Diagnoses Acute respiratory failure with hypoxia J96.01
== END 2022-01-05 13:38 | disposition home or self-care (01) | DRG 189 ==
LOC: ER 22:42 → ICU 23:44 → MEDSURG 01-05 05:18
PROVIDERS: Internal Medicine; Admitting Provider Family Medicine; Emergency Provider Emergency Medicine; Visit Provider Internal Medicine
DX: J96.01 Acute respiratory failure with hypoxia (principal); G30.0 Alzheimer's disease with early onset; F02.80 Dementia in other diseases classified elsewhere, unspecified severity, without behavioral disturbance, psychotic disturbance, mood disturbance, and anxiety; J43.2 Centrilobular emphysema; F17.210 Nicotine dependence, cigarettes, uncomplicated; J84.10 Pulmonary fibrosis, unspecified
CPT/HCPCS: 36415; 36600; 71045; 71275; 80048; 80053; 82805; 83605; 83880; 84484; 85025; 85378; 87040; 87635; 93005; 94640; 94660; 94760; 96365; 96372; 96375; 99291; C9113; J0456; J0696; J1650; J2270; J2920; J2930; J3475; J7050; J7626; Q9967

== ENCOUNTER 2022-01-13 07:09 | Outpatient (CLI) | payer BC, OTHER, SELFPAY ==
--- NOTE | 2022-01-13 07:45 | US_ITS ---
WS: [id number] RIGHT UPPER QUADRANT ULTRASOUND HISTORY: Nausea and vomiting, abdominal pain COMPARISON: Prior CT 09/05/2019 Liver: 17.6 cm in length. Liver is top normal to slightly enlarged in size. No mass or bile duct dila tation. Portal Vein: Normal hepatopetal flow with monophasic waveform. Gallbladder: Gallbladder is slightly contracted with numerous stones filling the lumen. Large amount of shadowing from the oleksandr hepatis and gallbladder. CBD: 0.4 cm Pancreas: Normal size and echogenicity. Right kidney: 10.3 cm in length. Normal size and echogenicity. No hydronephrosis or mass. Aorta and IVC: Unremarkable abdominal aorta and IVC. No ascites. US/US gall bladder [id number] IMPRESSION: 1. Cholelithiasis without evidence for acute cholecystitis. Numerous stones wi thin the gallbladder lumen. 2. No bile duct dilatation.
== END 2022-01-13 07:10 | disposition home or self-care (01) ==
LOC: RAD 07:10
PROVIDERS: Visit Provider Surgery
DX: R10.9 Unspecified abdominal pain (principal); R11.2 Nausea with vomiting, unspecified; K80.20 Calculus of gallbladder without cholecystitis without obstruction
CPT/HCPCS: 76705

== ENCOUNTER 2022-03-22 09:35 | Emergency (ER) | payer MEDICARE, BC, OTHER, SELFPAY ==
[2022-03-22 09:35] VITALS: BP 111/68; PULSE 92; RESP 22; O2SAT 94; BMI 17.9
--- NOTE | 2022-03-22 09:41 | ECG_ITS ---
[facility] Test Date: 2022-03-22 Pat Name: Radha Cordova Department: Room: Gender: Female Classifications Officer Cc/Cm: : 1960 Requested By: Josette Szymanski Order Number: [id number] MD: Ned Álvarez M.D. Measurements Intervals [place] Rate: 86 P: 83 [place]: 144 QRS: 87 QRSD: 100 T: 83 QT: 381 QTc: 457 Interpretive Statements SINUS RHYTHM RIGHT ATRIAL ENLARGEMENT [0.3mV P-WAVE] Compared to ECG 01/04/2022 03:08:47 No significant changes Electronically Signed On 03-22-2022 19:44:13 FORENSIC PSYCHOLOGIST by Ned Álvarez M.D. [email or web address]
--- NOTE | 2022-03-22 09:41 | XRR_ITS ---
PROCEDURE INFORMATION: Exam: XR Chest Exam date and time: 03/22/2022 9:47 AM Age: 62 years old Clinical indication: Shortness of breath; Additional info: SOB TECHNIQUE: Imaging protocol: Radiologic exam of the chest. Views: 1 view. COMPARISON: CR (CHEST, ) 01/03/2022 9:54 PM FINDINGS: Lungs: Background of emphysema. No focal airspace consolidation. Biapical pleuroparenchymal scarring. Pleural spaces: Unremarkable. No pleural effusion. No pneumothorax. Heart/Mediastinum: Unremarkable. No cardiomegaly. Bones/joints: Unremarkable. XR/XR chest 1V portable [id number] IMPRESSION: No acute cardiopulmonary abnormality.
--- NOTE | 2022-03-22 09:42 | W.ED.SOB ---
HPI - SOB/Dyspnea General: Chief Complaint: Shortness of Breath/Dyspnea Stated Complaint: SOB Time Seen by Provider: 03/22/22 09:36 Source: patient and EMS Mode of arrival: EMS Limitations: no limitations History of Present Illness: HPI Narrative: 62-year-old female with a history of COPD has had wheezing and shortness of breath over the last 24 hours. She wears oxygen as needed states she has been wearing 2 L over the last 24 hours as well. Patient received breathing treatment in route states she feels improved she has had no cough no fever denies any worsening factors Associated symptoms: Deny abdominal pain, chest pain, fever(s), nausea or vomiting Review of Systems Const: Denies: fever(s), chills, body aches or change in appetite Eyes: Denies: blurry vision or eye discomfort ENMT: Denies: throat pain or dental pain Card: Denies: chest pain Resp: Reports: dyspnea, non-productive cough and wheezing GI: Denies: abdominal pain, nausea, vomiting or diarrhea : Denies: dysuria Musc: Denies: neck pain or back pain Skin/Breast: Denies: rash Neuro: Denies: headache(s) Psych: Denies: depression Ned/Lymph: Denies: easy bruising All/Imm: Denies: urticaria PFSH ED PFSH: Medical History Acute respiratory failure with hypoxia Asymptomatic cholelithiasis Hypersomnia Loss of weight MCI (mild cognitive impairment) Short-term memory loss Surgical History History of appendectomy History of section History of esophagogastroduodenoscopy (EGD) 09/25/21 History of left knee surgery History of right knee surgery Family History Mother Cancer breast Father Parkinsons Social History Smoking and tobacco status: current every day smoker cigarettes Packs smoked per day: 2 Alcohol intake: current History of recent travel: No Physical Exam Const: COMMON NORMALS: no acute distress, patient oriented x3 and healthy appearing HENMT: COMMON NORMALS: normocephalic and atraumatic HEAD & SCALP: normocephalic and atraumatic Eye: COMMON NORMALS: Equal, round and reactive pupils present and EOMs intact bilaterally PUPIL: Yes Equal, round and reactive pupils present Neck/C-Spine: COMMON NORMALS: full ROM and supple Chest: COMMONS NORMALS: normal inspection of the chest and normal palpation of entire chest wall Resp: COMMON NORMALS: normal respiratory effort, No retractions and No use of accessory muscles AUSCULTATION: wheezes Cardio: COMMON NORMALS: regular rate, regular rhythm and No murmurs present (Cardio) RATE: regular rate RHYTHM: regular rhythm GI: COMMON NORMALS: Normal to inspection, nondistended, normoactive bowel sounds present, Soft to palpation, non-tender and no masses PALPATION: Yes Soft to palpation Extremity: COMMON NORMALS: normal to inspection and full ROM Neuro: COMMON NORMALS: patient oriented x3, moves all extremities and no focal motor deficits Psych: COMMON NORMALS: mental status grossly normal, Normal thought process present and cooperative THOUGHT PROCESS: Normal thought process present Skin: COMMON NORMALS: no rashes or lesions noted and no wounds GENERAL SKIN EXAM: no rashes or lesions noted Course Vital Signs: Vital signs: Vital Signs Pulse Rate 84 03/22/22 10:00 Respiratory Rate 20 H 03/22/22 09:56 Blood Pressure 111/68 03/22/22 09:35 Pulse Oximetry 92 03/22/22 09:56 Oxygen Delivery Me thod 03/22/22 09:56 Oxygen Flow Rate 2 03/22/22 09:56 MDM - SOB/Dyspnea Medical Decision Making Patient presents here with COPD exacerbation he is much improved here after breathing treatments blood works normal x-ray shows no pneumonia we will start her on prednisone she is to continue her breathing treatments at home return if worsening she understands agrees to plan. Lab Data 03/22/22 09:45 03/22/22 09:45 Labs/Radiology: Radiology Impressions Chest X-Ray 03/22/22 09:41 IMPRESSION: No acute cardiopulmonary abnormality. Laboratory Results WBC 7.6 10^3/uL (4.0-10.0) 03/22/22 09:45 RBC 4.35 10^6/uL (4.1-5.3) 03/22/22 09:45 Hgb 13.7 g/dL (11.5-15.3) 03/22/22 09:45 Hct 42.7 % (37.0-47.0) 03/22/22 09:45 MCV 98.2 fl (81-99) 03/22/22 09:45 MCH 31.5 pg (28.0-34.0) 03/22/22 09:45 MCHC 32.1 g/dL (30.0-36.0) 03/22/22 09:45 RDW 13.2 % (12.1-15.1) 03/22/22 09:45 Plt Count 248 10^3/cmm (130-400) 03/22/22 09:45 MPV 10.1 fL (7.4-10.4) 03/22/22 09:45 Neut % (Auto) 71.9 % 03/22/22 09:45 Lymph % (Auto) 18.6 % 03/22/22 09:45 [place] % (Auto) 7.4 % 03/22/22 09:45 Eos % (Auto) 1.5 % 03/22/22 09:45 Baso % (Auto) 0.5 % 03/22/22 09:45 Neut # (Auto) 5.45 10^3/uL (1.8-7.7) 03/22/22 09:45 Lymph # (Auto) 1.4 10^3/uL (0.8-4.8) 03/22/22 09:45 [place] # (Auto) 0.6 10^3/uL (0.2-0.9) 03/22/22 09:45 Eos # (Auto) 0.1 10^3/uL (0.0-0.8) 03/22/22 09:45 Baso # (Auto) 0.0 10^3/uL (0.0-0.1) 03/22/22 09:45 Nucleated RBC % (auto) 0 % 03/22/22 09:45 Nucleated RBCs # 0.0 /100WBC 03/22/22 09:45 Sodium 139 mmol/L (136-145) 03/22/22 09:45 Potassium 3.7 mmol/L (3.5-5.1) 03/22/22 09:45 Chloride 103 mmol/L (98-107) 03/22/22 09:45 Carbon Dioxide 27 mmol/L (22-29) 03/22/22 09:45 Anion Gap 12.7 (5-19) 03/22/22 09:45 BUN 10 mg/dL (8-23) 03/22/22 09:45 Creatinine 0.7 mg/dL (0.5-0.9) 03/22/22 09:45 GFR Calculation 85.1 mL/min (90-130) L 03/22/22 09:45 Glucose 104 mg/dL (65-115) 03/22/22 09:45 Calculated Osmolality 287 mOsm/kg (285-295) 03/22/22 09:45 Calcium 9.4 mg/dL (8.5-10.5) 03/22/22 09:45 Total Bilirubin 0.6 mg/dL (0.15-1.2) 03/22/22 09:45 AST 15 U/L (0-32) 03/22/22 09:45 ALT 12 U/L (0-33) 03/22/22 09:45 Alkaline Phosphatase 81 U/L (35-105) 03/22/22 09:45 NT-Pro-B Natriuret Pep 36 pg/mL (0-125) 03/22/22 09:45 Total Protein 6.9 g/dL (6.6-8.7) 03/22/22 09:45 Albumin 4.0 g/dL (3.5-5.2) 03/22/22 09:45 Globulin 2.9 g/dL (1.3-4.6) 03/22/22 09:45 Influenza Type A Ag negative (Negative) 03/22/22 10:15 Influenza Type B Ag negative (Negative) 03/22/22 10:15 Discharge Plan Discharge Patient Disposition: Home Clinical Impression: Acute exacerbation of chronic obstructive airways disease Condition: Stable Prescriptions: New prednisone 50 mg tablet 50 mg PO DAILY Qty: 5 0RF No Action olanzapine 10 mg tablet 10 mg PO DAILY Qty: 30 5RF trihexyphenidyl 2 mg tablet 2 mg PO TID 90 Days Qty: 270 0RF Rx Instructions: give with food (meal/snack) galantamine 16 mg capsule,ext rel. pellets 24 hr 16 mg PO QAM Qty: 30 5RF Rx Instructions: administer with breakfast Trelegy Ellipta 100-62.5-25 mcg blister with device 1 inh inhalation DAILY Qty: 28 0RF albuterol sulfate 90 mcg/actuation HFA aerosol inhaler 2 inh inhalation Q8H PRN (Reason: shortness of breath or wheezing) Qty: 6.7 0RF olanzapine 5 mg tablet 5 mg PO QPM Qty: 30 3RF Discharge Orders: Discharge ED (Routine); Ordered 03/22/22 Ordered By: Josette Szymanski Discharge Diet: Advance as tolerated Discharge Activity: Resume usual activity Patient Instructions: COPD (Chronic Obstructive Pulmonary Disease) (ED) Coding Level of Care Code ED Legal Instructor for Josué Fwd Exam Comprehensive
[2022-03-22 09:56] VITALS: PULSE 82; RESP 20; O2SAT 92
[2022-03-22] MEDS: albuterol 2.5 mg/3 mL Neb INHALATION (09:56)
[2022-03-22 09:57] LABS: Basophils % 0.5 %; Eosinophils # 0.1 10^3/uL (0.0-0.8); Eosinophils % 1.5 %; Hematocrit 42.7 % (37.0-47.0); Hemoglobin 13.7 g/dL (11.5-15.3); Lymphocytes # 1.4 10^3/uL (0.8-4.8); Lymphocytes % 18.6 %; Mean Corpuscular HGB Conc 32.1 g/dL (30.0-36.0); Mean Corpuscular Hemoglobin 31.5 pg (28.0-34.0); Mean Corpuscular Volume 98.2 fl (81-99); Mean Platelet Volume 10.1 fL (7.4-10.4); Monocytes # 0.6 10^3/uL (0.2-0.9); Monocytes % 7.4 %; Neutrophils # 5.45 10^3/uL (1.8-7.7); Neutrophils % 71.9 %; Nucleated Red Blood Cells % 0 %; Platelet Count 248 10^3/cmm (130-400); Red Blood Count 4.35 10^6/uL (4.1-5.3); Red Cell Distribution Width 13.2 % (12.1-15.1); White Blood Count 7.6 10^3/uL (4.0-10.0)
[2022-03-22 10:00] VITALS: PULSE 84
[2022-03-22 10:27] LABS: Alanine Aminotransferase 12 U/L (0-33); Alkaline Phosphatase 81 U/L (35-105); Anion Gap 12.7 (5-19); Aspartate Amino Transferase 15 U/L (0-32); Blood Urea Nitrogen 10 mg/dL (8-23); Calcium 9.4 mg/dL (8.5-10.5); Carbon Dioxide 27 mmol/L (22-29); Chloride 103 mmol/L (98-107); Globulin 2.9 g/dL (1.3-4.6); Glomerular Filtration Rate 85.1 mL/min (90-130); Glucose 104 mg/dL (65-115); NT Pro B Type Natriuretic Pept 36 pg/mL (0-125); Osmolality Calculated 287 mOsm/kg (285-295); Potassium 3.7 mmol/L (3.5-5.1); Sodium 139 mmol/L (136-145); Total Bilirubin 0.6 mg/dL (0.15-1.2); Total Protein 6.9 g/dL (6.6-8.7)
[2022-03-22 10:38] LABS: Influenza A by IFA negative (Negative); Influenza B by IFA negative (Negative)
[2022-03-22 11:13] VITALS: BP 111/68; PULSE 90; RESP 19; O2SAT 92
== END 2022-03-22 11:15 | disposition home or self-care (01) ==
PROVIDERS: Emergency Provider Emergency Medicine
DX: J44.1 Chronic obstructive pulmonary disease with (acute) exacerbation (principal); F17.210 Nicotine dependence, cigarettes, uncomplicated
CPT/HCPCS: 71045; 80053; 83880; 85025; 87804; 93005; 94640; 96374; 99285; J2930; J7613

== ENCOUNTER → 2022-07-08 14:33 | Outpatient (BNVA) | payer MEDICARE, BC, OTHER, SELFPAY | PROVIDERS: Visit Provider Specialist | DX: G30.9 Alzheimer's disease, unspecified (principal); F02.80 Dementia in other diseases classified elsewhere, unspecified severity, without behavioral disturbance, psychotic disturbance, mood disturbance, and anxiety | CPT/HCPCS: 99213 ==

== ENCOUNTER 2022-07-11 09:20 | Emergency (ER) | payer MEDICARE, BC, OTHER, SELFPAY ==
[2022-07-11 09:46] VITALS: BP 107/73; PULSE 68; O2SAT 94
--- NOTE | 2022-07-11 09:48 | ED_ITS ---
Documented by User: [email or web address] Roe 07/11/22 10:34 HPI - Skin/Abscess/Foreign Bdy General: Chief complaint: Skin/Abscess/Foreign Body Stated complaint: skin abnormality on leg Time Seen by Provider: 07/11/22 09:27 History of Present Illness: Patient is a 62-year-old female that presents with appears to be an abscess formation in the anterior surface just distal to the groin on the left lower extremity. There is an area of erythema warmth in duration that measures approximately 7 cm. Additionally there is a raised loculated abscess with some induration and fluctuance. Has been primarily provides HPI as patient has a history of dementia. He reports she has always had an knot in that area; however, in the last 2 days she has developed this expanding erythema and warmth and appears to have had some drainage from the wound. Patient has a history of COPD, Alzheimer's, mild cognitive impairment, hypothyroidism, seizure history. Associated symptoms: Deny chills, fever(s), nausea or vomiting Review of Systems General: Reports: 10 or more systems reviewed and unremarkable except in HPI and below Const: Denies: fever(s), chills, change in appetite, change in weight, fatigue or malaise Eyes: Denies: change in vision, eye discomfort, eye discharge or eye redness ENMT: Denies: throat pain, enlarged tonsils, odynophagia, hoarseness, ear or mastoid pain, ear discharge, change in hearing, tinnitus, nasal discharge, nasal congestion, post nasal drip or sinus pain Card: Denies: chest pain, palpitations, irregular heart rhythm, edema, dyspnea on exertion, orthopnea or leg pain with exertion Resp: Denies: dyspnea, productive cough, non-productive cough, wheezing, stridor or chest congestion GI: Denies: abdominal pain, nausea, vomiting, dysphagia, diarrhea, constipation, bloating, GI cramping or hematochezia : Denies: flank pain, difficulty voiding, dysuria, urinary frequency, urinary urgency, urinary hesitancy, oliguria or hematuria Musc: Denies: neck pain, back pain, extremity pain, joint pain, joint swelling, joint redness, joint warmth or muscle weakness Skin/Breast: Reports: erythema, skin pain, skin tenderness, skin swelling and changing lesions; Denies: rash, pruritus or photosensitivity Neuro: Denies: headache(s), numbness in extremities, weakness in extremities, sensory changes, lack of coordination, difficulty walking, frequent falls, dizziness, confusion, Slurred speech present, difficulty communicating thoughts, seizure-like activity or involuntary movements Endo: Denies: polyuria, polydipsia or tired all the time Ned/Lymph: Denies: easy bruising or easy bleeding PFSH ED PFSH: Medical History Acute respiratory failure with hypoxia Asymptomatic cholelithiasis Hypersomnia Loss of weight MCI (mild cognitive impairment) Short-term memory loss Surgical History History of appendectomy History of section History of esophagogastroduodenoscopy (EGD) 09/25/21 History of left knee surgery History of right knee surgery Family History Mother Cancer breast Father Parkinsons Social History Smoking and tobacco status: current every day smoker cigarettes Packs smoked per day: 2 Alcohol intake: current Physical Exam Const: COMMON NORMALS: no acute distress, patient oriented x3 and alert GENERAL APPEARANCE: cooperative ORIENTATION/CONSCIOUSNESS: Yes awake, Yes oriented to person, Yes oriented to place and Yes oriented to time HENMT: COMMON NORMALS: normocephalic and atraumatic HEAD & SCALP: normocephalic and atraumatic FACE & SINUS: normal facial exam MOUTH: Nor mal oral and palatal mucosa present THROAT: posterior oropharynx normal Eye: COMMON NORMALS: Equal, round and reactive pupils present, EOMs intact bilaterally, conjunctivae normal and no scleral icterus GENERAL EYE: appearance normal, both eyes and all related structures ALIGNMENT: Yes alignment normal PERIORBITAL: periorbital findings normal CONJUNCTIVA: Yes conjunctivae normal PUPIL: Yes Equal, round and reactive pupils present Neck/C-Spine: COMMON NORMALS: full ROM GENERAL: Yes normal visual ins pection Lymph: LYMPHATIC: no lymphadenopathy noted Chest: COMMONS NORMALS: normal inspection of the chest Breast/axilla inspection: Yes no chest deformity, asymmetry, normal contours, no nodules, masses, tenderness Resp: COMMON NORMALS: normal respiratory effort, No retractions, No use of accessory muscles and clear to auscultation bilaterally EFFORT & INSPECTION: Yes able to speak in complete sentences and Yes symmetric chest movement AUSCULTATION: clear to auscultation bilaterally Cardio: COMMON NORMALS: regular rate, regular rhythm and Peripheral pulses 2+ throughout RATE: regular rate RHYTHM: regular rhythm PERIPHERAL PULSES: Peripheral pulses 2+ throughout GI: COMMON NORMALS: Normal to inspection, nondistended, normoactive bowel sounds present, Soft to palpation, non-tender and No hepatosplenomegaly present INSPECTION: Yes normal to inspection AUSCULTATION: Yes normoactive bowel sounds PALPATION: Yes Soft to palpation and Yes No hepatosplenomegaly present RECTAL EXAM: deferred Extremity: COMMON NORMALS: normal to inspection GENERAL: Yes normal exam except as noted Neuro: COMMON NORMALS: patient oriented x3 SENSORIUM/ORIENTATION: Yes alert, Yes oriented to person, Yes oriented to place and Yes oriented to time CRANIAL NERVES: Yes CN normal except as noted Psych: COMMON NORMALS: mental status grossly normal, Normal thought process present, cooperative, activity/motor behavior normal, denies homicidal ideation and denies suicidal ideation THOUGHT PROCESS: Normal thought process present Skin: COMMON NORMALS: turgor normal and no jaundice SKIN IMAGES (FEMALE): 1. 7 cm area of erythema and induration. At the center there are 2 loculated appearing abscess with mild fluctuance. GENERAL SKIN EXAM: turgor normal Course Vital Signs: Vital signs: Vital Signs Pulse Rate 68 07/11/22 10:52 Blood Pressure 107/73 07/11/22 10:52 Pulse Oximetry 94 07/11/22 10:52 Oxygen Delivery Mn thod 07/11/22 09:46 MDM - Skin/Abscess/Foreign Bdy Medicial Decision Making Patient was evaluated in the emergency department for left lower extremity abscess and cellulitis. Differential diagnosis includes cellulitis, abscess, sebaceous cyst. It appears that she has a sebaceous cyst, which has been there for 20 years, that is now cellulitic and has an area of fluctuance and drainage. After discussing treatment options which included antibiotics alone or irrigation and debridement and antibiotic patient and spouse elected for irrigation debridement and antibiotics. After timeout I infiltrated some of the area with lidocaine and epi. Approximately 1 cc was used. 1 cm stab incision was made. Was able to drain and debride large amount of foul-smelling material that was purulent and bloody. Attempts to break up the loculated areas was made with some success. Patient came very anxious and requested for me to stop. Cultures were obtained and sent to lab. We packed the wounds and initiated antibiotic treatment. I have consulted case management for wound care and dermatology follow-up. Diagnosis is likely sebaceous cyst that has developed a secondary abscess and cellulitis. Discharge Plan Discharge Patient Disposition: Home Clinical Impression: Sebaceous cyst, Cellulitis, Abscess Condition: Stable Prescriptions: New Bactrim DS 800-160 mg tablet 1 tab PO BID 7 Days Qty: 14 0RF No Action olanzapine 10 mg tablet 10 mg PO DAILY Qty: 30 5RF trihexyphenidyl 2 mg tablet 2 mg PO TID 90 Days Qty: 270 0RF Rx Instructions: give with food (meal/snack) galantamine 8 mg capsule,ext rel. pellets 24 hr 8 mg PO QAM Qty: 30 0RF Rx Instructions: Take one tablet daily for a month. Administer with breakfast galantamine 16 mg capsule,ext rel. pellets 24 hr 16 mg PO QAM Qty: 30 5RF Rx Instructions: Take one tablet daily. Administer with breakfast. Do not start until 08/08/22. Trelegy Ellipta 100-62.5-25 mcg blister with device 1 inh inhalation DAILY Qty: 28 0RF albuterol sulfate 90 mcg/actuation HFA aerosol inhaler 2 inh inhalation Q8H PRN (Reason: shortness of breath or wheezing) Qty: 6.7 0RF olanzapine 5 mg tablet 5 mg PO QPM Qty: 30 3RF prednisone 50 mg tablet 50 mg PO DAILY Qty: 5 0RF Discharge Orders: Discharge ED (Routine); Ordered 07/11/22 Ordered By: Kimo Roberto Discharge Diet: Advance as tolerated Discharge Activity: Resume usual activity Patient Instructions: Sulfamethoxazole/Trimethoprim (By mouth) (Bactrim, Bactrim DS,..., Cellulitis (ED), Abscess (ED), Abscess Incision and Drainage (DC), Pain Management Activity Restrictions/Additional Instructions: Please leave packing in place Change the dressing twice a day Take the antibiotics as prescribed I have asked case management to set up both wound care and dermatology follow- up. Somebody should be reaching out to you to set up follow-up appointments. If you have not heard from anyone in the next week, I would call your primary care doctor to follow-up on this. Please return to the urgency department for new concerning or worsening symptoms Coding Level of Care Code ED Obstetric Anaesthetist for Josué Fwd Documented by User: Raffy Soto DO 07/11/22 13:31 HPI - Skin/Abscess/Foreign Bdy General: Chief complaint: Skin/Abscess/Foreign Body Stated complaint: skin abnormality on leg Time Seen by Provider: 07/11/22 09:27 PFS ED PFSH: Medical History Acute respiratory failure with hypoxia Asymptomatic cholelithiasis Hypersomnia Loss of weight MCI (mild cognitive impairment) Short-term memory loss Surgical History History of appendectomy History of section History of esophagogastroduodenoscopy (EGD) 09/25/21 History of left knee surgery History of right knee surgery Family History Mother Cancer breast Father Parkinsons Social History Smoking and tobacco status: current every day smoker cigarettes Packs smoked per day: 2 Alcohol intake: current Physical Exam Skin: SKIN IMAGES (FEMALE): 1. 7 cm area of erythema and induration. At the center there are 2 loculated appearing abscess with mild fluctuance. Course Vital Signs: Vital signs: Vital Signs Pulse Rate 68 07/11/22 10:52 Blood Pressure 107/73 07/11/22 10:52 Pulse Oximetry 94 07/11/22 10:52 Oxygen Delivery Me thod 07/11/22 09:46 MDM - Skin/Abscess/Foreign Bdy Medicial Decision Making Patient was evaluated in the emergency department for left lower extremity abscess and cellulitis. Differential diagnosis includes cellulitis, abscess, sebaceous cyst. It appears that she has a sebaceous cyst, which has been there for 20 years, that is now cellulitic and has an area of fluctuance and drainage. After discussing treatment options which included antibiotics alone or irrigation and debridement and antibiotic patient and spouse elected for irrigation debridement and antibiotics. After timeout I infiltrated some of the area with lidocaine and epi. Approximately 1 cc was used. 1 cm stab incision was made. Was able to drain and debride large amount of foul-smelling material that was purulent and bloody. Attempts to break up the loculated areas was made with some success. Patient came very anxious and requested for me to stop. Cultures were obtained and sent to lab. We packed the wounds and initiated antibiotic treatment. I have consulted case management for wound care and dermatology follow-up. Diagnosis is likely sebaceous cyst that has developed a secondary abscess and cellulitis. Chart reviewed and patient discussed with midlevel. Agree with assessment and plan. Discharge Plan Discharge Patient Disposition: Home Clinical Impression: Sebaceous cyst, Cellulitis, Abscess Condition: Stable Prescriptions: New Bactrim DS 800-160 mg tablet 1 tab PO BID 7 Days Qty: 14 0RF No Action olanzapine 10 mg tablet 10 mg PO DAILY Qty: 30 5RF trihexyphenidyl 2 mg tablet 2 mg PO TID 90 Days Qty: 270 0RF Rx Instructions: give with food (meal/snack) galantamine 8 mg capsule,ext rel. pellets 24 hr 8 mg PO QAM Qty: 30 0RF Rx Instructions: Take one tablet daily for a month. Administer with breakfast galantamine 16 mg capsule,ext rel. pellets 24 hr 16 mg PO QAM Qty: 30 5RF Rx Instructions: Take one tablet daily. Administer with breakfast. Do not start until 08/08/22. Trelegy Ellipta 100-62.5-25 mcg blister with device 1 inh inhalation DAILY Qty: 28 0RF albuterol sulfate 90 mcg/actuation HFA aerosol inhaler 2 inh inhalation Q8H PRN (Reason: shortness of breath or wheezing) Qty: 6.7 0RF olanzapine 5 mg tablet 5 mg PO QPM Qty: 30 3RF prednisone 50 mg tablet 50 mg PO DAILY Qty: 5 0RF Discharge Orders: Discharge ED (Routine); Ordered 07/11/22 Ordered By: Rozlyn Deirdre McTeer Discharge Diet: Advance as tolerated Discharge Activity: Resume usual activity Patient Instructions: Sulfamethoxazole/Trimethoprim (By mouth) (Bactrim, Bactrim DS,..., Cellulitis (ED), Abscess (ED), Abscess Incision and Drainage (DC), Pain Management Activity Restrictions/Additional Instructions: Please leave packing in place Change the dressing twice a day Take the antibiotics as prescribed I have asked case management to set up both wound care and dermatology follow- up. Somebody should be reaching out to you to set up follow-up appointments. If you have not heard from anyone in the next week, I would call your primary care doctor to follow-up on this. Please return to the urgency department for new concerning or worsening symptoms Coding Level of Care Code ED Obstetric Anaesthetist for Josué Ash
[2022-07-11] MEDS: lidocaine-epi 1% 20 mL INJ INJECTION (10:12)
[2022-07-11] MEDS: sulfamethoxazole-trimeth DS 160-800 mg Tablet 1 TAB PO (10:48)
[2022-07-11 10:52] VITALS: BP 107/73; PULSE 68; O2SAT 94
--- NOTE | 2022-07-13 13:51 | DCPLANNER ---
Addendum entered by Xochitl Ojeda 07/22/22 15:00: Patient had a follow up appointment scheduled with Wound Care - patient did attend appointment. Addendum entered by Xochitl Ojeda 07/15/22 09:07: Patient has a follow up appointment scheduled for Sunday, July 17, 2022 at 10:[address] Sierra at [facility]. Clinic will call patient with appointment information. Original Note: mortuary operations manager had message to schedule a follow up appointment for patient with [facility]. mortuary operations manager sent patients information to the front office staff at wound care. Patients information will be reviewed. Clinic will call patient with appointment information.
--- NOTE | 2022-07-13 13:55 | DCPLANNER ---
manager engine had message to refer patient to dermatology clinic. manager engine is unable to refer patients to dermatology, that referral will need to come from patients primary care physician. manager engine called and spoke with patients , and informed him that patient would need to follow up with primary care physician. Patients stated that patient will be seeing Stefanie Vera at [facility] on 07.14.22 for a follow up appointment from the ER.
--- NOTE | 2022-07-21 15:55 | DCPLANNER ---
case manager specialist called patient due to no primary care physician - patients stated that patient is seeing Stefanie Mock at the [facility].
== END 2022-07-11 10:55 | disposition home or self-care (01) ==
PROVIDERS: Emergency Provider Nurse Practitioner
DX: L02.416 Cutaneous abscess of left lower limb (principal); L03.116 Cellulitis of left lower limb; L72.3 Sebaceous cyst; J44.9 Chronic obstructive pulmonary disease, unspecified; E03.9 Hypothyroidism, unspecified; G30.9 Alzheimer's disease, unspecified; F02.80 Dementia in other diseases classified elsewhere, unspecified severity, without behavioral disturbance, psychotic disturbance, mood disturbance, and anxiety; F17.210 Nicotine dependence, cigarettes, uncomplicated
CPT/HCPCS: 10060; 87070; 99283

== ENCOUNTER → 2022-07-17 09:12 | Outpatient (BNVA) | payer MEDICARE, BC, OTHER, SELFPAY | PROVIDERS: Visit Provider Thoracic Surgery (Cardiothoracic Vascular Surgery) | DX: Z51.89 Encounter for other specified aftercare (principal); L02.214 Cutaneous abscess of groin | CPT/HCPCS: 97597; 99213; A6212 ==

== ENCOUNTER → 2022-08-06 13:45 | Outpatient (BNVA) | payer MEDICARE, BC, OTHER, SELFPAY | PROVIDERS: Visit Provider Nurse Practitioner Family | DX: M79.605 Pain in left leg (principal); R60.0 Localized edema | CPT/HCPCS: 73590; 73610 ==

== ENCOUNTER → 2023-06-15 07:44 | Outpatient (BNVA) | payer MEDICARE, BC, OTHER, SELFPAY | PROVIDERS: Visit Provider Nurse Practitioner Family | DX: G30.9 Alzheimer's disease, unspecified (principal); F02.80 Dementia in other diseases classified elsewhere, unspecified severity, without behavioral disturbance, psychotic disturbance, mood disturbance, and anxiety; E53.8 Deficiency of other specified B group vitamins; E55.9 Vitamin D deficiency, unspecified | CPT/HCPCS: 80053; 80061; 82306; 82607; 83735; 84443; 85025 ==

== ENCOUNTER 2023-08-21 16:26 | Emergency (ER) | payer MEDICARE, BC, SELFPAY ==
[2023-08-21] VITALS (10 sets, daily range): BP systolic 83–144; BP diastolic 50–92; PULSE 55–74; RESP 14–18; TEMP 36.6; O2SAT 91–100
--- NOTE | 2023-08-21 16:30 | ECG_ITS ---
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 Measurements Intervals [place] Rate: 64 P: 148 TX: 151 QRS: 95 QRSD: 102 T: 105 QT: 403 QTc: 417 Interpretive Statements SINUS RHYTHM ARM LEADS REVERSED [INVERTED P AND QRS IN I] Compared to ECG 03/22/2022 10:38:38 Atrial abnormality no longer present Electronically Signed On 08-22-2023 12:05:53 CDT by Ned Álvarez M.D. [email or web address]
[2023-08-21 16:45] LABS: Basophils % 0.5 %; Eosinophils # 0.1 10^3/uL (0.0-0.8); Eosinophils % 2.5 %; Hematocrit 34.9 % (36-47); Lymphocytes # 1.2 10^3/uL (0.8-4.8); Lymphocytes % 29.2 %; Mean Corpuscular Hemoglobin 30.3 pg (27-33); Mean Corpuscular Volume 92.1 fl (85-98); Mean Platelet Volume 10.1 fL (7.4-10.4); Monocytes # 0.3 10^3/uL (0.2-0.9); Monocytes % 8.2 %; Neutrophils % 59.4 %; Nucleated Red Blood Cells % 0 %; Platelet Count 156 10^3/cmm (157-399); Red Blood Count 3.79 10^6/uL (3.85-5.65); Red Cell Distribution Width 13.9 % (12.1-15.1); White Blood Count 4.04 10^3/uL (3.29-11.43)
--- NOTE | 2023-08-21 16:51 | ED_ITS ---
Documented by User: Lisa Amezcua MD 08/22/23 09:48 HPI - General Adult 2 General: Chief complaint: General Medical Stated complaint: AGGRESSIVE BEHAVIORS Time Seen by Provider: 08/21/23 16:28 History of Present Illness: 63-year-old female who is on hospice for advanced dementia who presents to the emergency room with worsening aggressive behaviors. She has been receiving Ativan at home but it wears off after about 20 minutes and she becomes more aggressive. Family is wanting her sent for a Michelle psych evaluation and possible adjustments of her medications. Review of Systems 2 Narrative: Unable to obtain secondary to advanced dementia PFS ED 2 PFSH: Medical History Asymptomatic cholelithiasis Acute respiratory failure with hypoxia Hypersomnia Loss of weight Short-term memory loss MCI (mild cognitive impairment) Surgical History History of esophagogastroduodenoscopy (EGD) 09/25/21 History of section History of appendectomy History of right knee surgery History of left knee surgery Family History Mother Cancer breast Father Parkinson disease Social History Quit status (tobacco/nicotine): has quit using Year quit tobacco: almost 1 year ago Second hand smoke exposure: No Alcohol intake: never Substance/Drug Use: never Caregiver/support person: Yes Lives independently: Yes Household members: spouse Marital status: Current occupational status: disabled Current gender identity: Female Special grayson needs: No Physical Exam 2 Narrative: EXAM NARRATIVE: General: Patient is somnolent upon arrival, she received medications on the ambulance Skin: Warm, dry. Head: Normocephalic, atraumatic. Neck: Supple, trachea midline. Eye: Extraocular movements are intact. Ears, nose, mouth and throat: Tacky oral mucosa Cardiovascular: Regular, Normal peripheral perfusion. Respiratory: Lungs are clear to auscultation, respirations are non-labored, breath sounds are equal, Symmetrical chest wall expansion. Gastrointestinal: Soft, Nontender, Non distended, Normal bowel sounds. Musculoskeletal: Normal ROM, no deformity. Neurological: Somnolent, no obvious focal motor deficits. Psychiatric: Unable to assess Course 2 Vital Signs: Vital signs: Vital Signs Temperature 97.9 F 08/21/23 16:27 Pulse Rate 75 08/22/23 22:31 Respiratory Rate 17 08/22/23 22:31 Blood Pressure 135/76 08/22/23 22:31 Pulse Oximetry 94 08/22/23 22:31 Oxygen Delivery Me thod Room Air 08/22/23 20:00 MDM - General Adult Medical Decision Making Medical decision making: Differential diagnosis for a geriatric patient with worsening dementia/behavioral problems including but not limited to and based on the above HPI, review of systems and physical exam: Concerns for infection such as UTI or pneumonia. Alcohol intoxication. Cardiac issues or other medical problems to be ruled out prior to a geriatric/psychiatric admission Orders placed to evaluate differential diagnosis based on the above differential, HPI and physical exam Lab work, chest X-ray and ekg ordered to evaluate the pathologies and to clear the patient medically prior EKG: Rate 64 time 1719 normal sinus rhythm, No ST-T changes, no ectopy, normal MS & QRS intervals, This was reviewed and interpreted by myself the ER physician at 1725. - EKG shows no ischemic changes. - Blood alcohol level is negative, as well as salicylate and Tylenol. - Drug screen is negative - No anemia. - BUN and creatinine are within normal limits. -Sodium was a bit elevated likely due to dehydration. She received fluids. Urinalysis is still pending at shift change. Patient has received 2 doses of Ativan and Haldol. Lab Data 08/21/23 16:39 08/21/23 16:39 Laboratory Results WBC 4.04 10^3/uL (3.29-11.43) 08/21/23 16:39 RBC 3.79 10^6/uL (3.85-5.65) L 08/21/23 16:39 Hgb 11.50 g/dL (11.27-16.99) 08/21/23 16:39 Hct 34.9 % (36-47) L 08/21/23 16:39 MCV 92.1 fl (85-98) 08/21/23 16:39 MCH 30.3 pg (27-33) 08/21/23 16:39 MCHC 33.0 g/dL (30-55) 08/21/23 16:39 RDW 13.9 % (12.1-15.1) 08/21/23 16:39 Plt Count 156 10^3/cmm (157-399) L 08/21/23 16:39 MPV 10.1 fL (7.4-10.4) 08/21/23 16:39 Neut % (Auto) 59.4 % 08/21/23 16:39 Lymph % (Auto) 29.2 % 08/21/23 16:39 Cam[place] % (Auto) 8.2 % 08/21/23 16:39 Eos % (Auto) 2.5 % 08/21/23 16:39 Baso % (Auto) 0.5 % 08/21/23 16:39 Neut # (Auto) 2.40 10^3/uL (1.8-7.7) 08/21/23 16:39 Lymph # (Auto) 1.2 10^3/uL (0.8-4.8) 08/21/23 16:39 Camas # (Auto) 0.3 10^3/uL (0.2-0.9) 08/21/23 16:39 Eos # (Auto) 0.1 10^3/uL (0.0-0.8) 08/21/23 16:39 Baso # (Auto) 0.0 10^3/uL (0.0-0.1) 08/21/23 16:39 Nucleated RBC % (auto) 0 % 08/21/23 16:39 Nucleated RBCs # 0.0 /100WBC 08/21/23 16:39 Sodium 147 mmol/L (136-145) H 08/21/23 16:39 Potassium 3.6 mmol/L (3.5-5.1) 08/21/23 16:39 Chloride 110 mmol/L (98-107) H 08/21/23 16:39 Carbon Dioxide 28 mmol/L (22-29) 08/21/23 16:39 Anion Gap 12.6 (5-19) 08/21/23 16:39 BUN 12 mg/dL (8-23) 08/21/23 16:39 Creatinine 0.8 mg/dL (0.5-0.9) 08/21/23 16:39 GFR Calculation 72.7 mL/min (90-130) L 08/21/23 16:39 Glucose 107 mg/dL (65-115) 08/21/23 16:39 Calculated Osmolality 304 mOsm/kg (285-295) H 08/21/23 16:39 Calcium 8.4 mg/dL (8.5-10.5) L 08/21/23 16:39 Total Bilirubin 0.4 mg/dL (0.15-1.2) 08/21/23 16:39 AST 14 U/L (0-32) 08/21/23 16:39 ALT 9 U/L (0-33) 08/21/23 16:39 Alkaline Phosphatase 48 U/L (35-105) 08/21/23 16:39 Total Protein 6.1 g/dL (6.6-8.7) L 08/21/23 16:39 Albumin 3.8 g/dL (3.5-5.2) 08/21/23 16:39 Globulin 2.3 g/dL (1.3-4.6) 08/21/23 16:39 TSH 2.62 uIU/mL (0.27-4.20) 08/21/23 16:39 Urine Color Yellow (Yellow) 08/21/23 21:17 Urine Appearance Clear (CLEAR) 08/21/23 21:17 Urine pH 7 (5-7) 08/21/23 21:17 Ur Specific Aurora 1.010 (1.005-1.030) 08/21/23 21:17 Urine Protein Neg (Negative) 08/21/23 21:17 Urine Glucose (UA) Norm (Normal) 08/21/23 21:17 Urine Ketones Negative (Negative) 08/21/23 21:17 Urine Blood Neg (Negative) 08/21/23 21:17 Urine Nitrate Negative (Negative) 08/21/23 21:17 Urine Bilirubin Neg (Negative) 08/21/23 21:17 Urine Urobilinogen Neg mg/dL (Negative) 08/21/23 21:17 Ur Leukocyte Esterase Negative (Negative) 08/21/23 21:17 Urine RBC 0-4 /hpf (0-2) H 08/21/23 21:17 Urine WBC 0-4 /hpf (0-5) H 08/21/23 21:17 Ur Squamous Epith Cells 0-4 /hpf (0-5) H 08/21/23 21:17 Amorphous Sediment Not Reportable 08/21/23 21:17 Urine Bacteria Trace /hpf (NONE) 08/21/23 21:17 Urine Mucus Trace /hpf 08/21/23 21:17 Salicylates < 0.3 mg/dL (3-10) L 08/21/23 16:39 Urine Opiates Screen Negative ng/mL (Negative) 08/21/23 21:17 Acetaminophen < 5.0 ug/mL (10-30) L 08/21/23 16:39 Ur Barbiturates Screen Negative ng/mL (Negative) 08/21/23 21:17 Ur Phencyclidine Scrn Negative ng/mL (Negative) 08/21/23 21:17 Ur Amphetamines Screen Negative ng/mL (Negative) 08/21/23 21:17 U Benzodiazepines Scrn Positive ng/mL (Negative) H 08/21/23 21:17 Urine Cocaine Screen Negative ng/mL (Negative) 08/21/23 21:17 U Marijuana (THC) Screen Negative ng/mL (Negative) 08/21/23 21:17 Ethyl Alcohol < 10 mg/dL (0-10) 08/21/23 16:39 Adenovirus (PCR) Not detected (NOT DETECT) 08/22/23 09:22 C. pneumoniae DNA (PCR) Not detected (NOT DETECT) 08/22/23 09:22 Coronavirus 229E (PCR) Not detected (NOT DETECT) 08/22/23 09:22 Human Metapneumovir PCR Not detected (NOT DETECT) 08/22/23 09:22 Influenza A (H1) PCR Not detected (NOT DETECT) 08/22/23 09:22 Influ A (H1/09) PCR Not detected (NOT DETECT) 08/22/23 09:22 Influenza A (H3) PCR Not detected (NOT DETECT) 08/22/23 09:22 Influenza Type A (PCR) Not detected (NOT DETECT) 08/22/23 09:22 Influenza Type B (PCR) Not detected (NOT DETECT) 08/22/23 09:22 M. pneumoniae (PCR) Not detected (NOT DETECT) 08/22/23 09:22 Parainfluenza 1 (PCR) Not detected (NOT DETECT) 08/22/23 09:22 Parainfluenza 2 (PCR) Not detected (NOT DETECT) 08/22/23 09:22 Parainfluenza 3 (PCR) Not detected (NOT DETECT) 08/22/23 09:22 Parainfluenza 4 (PCR) Not detected (NOT DETECT) 08/22/23 09:22 RSV Type A (PCR) Not detected (NOT DETECT) 08/22/23 09:22 RSV Type B (PCR) Not detected (NOT DETECT) 08/22/23 09:22 Entero/Rhino (PCR) Not detected (NOT DETECT) 08/22/23 09:22 SARS-CoV-2 (PCR) Not detected (NOT DETECT) 08/22/23 09:22 No radiology studies performed this visit Discharge Plan Discharge Patient Disposition: Xfer Psychiatric Hosp Clinical Impression: Advanced dementia, Behavioral change Condition: Stable Coding Level of Care Code ED Fishing Vessel Deckhand for Chg Fwd Documented by User: Raffy Soto DO 08/22/23 16:45 HPI - General Adult 2 General: Chief complaint: General Medical Stated complaint: AGGRESSIVE BEHAVIORS Time Seen by Provider: 08/21/23 16:28 PFS ED 2 PFSH: Medical History Asymptomatic cholelithiasis Acute respiratory failure with hypoxia Hypersomnia Loss of weight Short-term memory loss MCI (mild cognitive impairment) Surgical History History of esophagogastroduodenoscopy (EGD) 09/25/21 History of section History of appendectomy History of right knee surgery History of left knee surgery Family History Mother Cancer breast Father Parkinson disease Social History Quit status (tobacco/nicotine): has quit using Year quit tobacco: almost 1 year ago Second hand smoke exposure: No Alcohol intake: never Substance/Drug Use: never Caregiver/support person: Yes Lives independently: Yes Household members: spouse Marital status: Current occupational status: disabled Current gender identity: Female Special grayson needs: No Course 2 Vital Signs: Vital signs: Vital Signs Temperature 97.9 F 08/21/23 16:27 Pulse Rate 75 08/22/23 22:31 Respiratory Rate 17 08/22/23 22:31 Blood Pressure 135/76 08/22/23 22:31 Pulse Oximetry 94 08/22/23 22:31 Oxygen Delivery Me thod Room Air 08/22/23 20:00 MDM - General Adult Medical Decision Making Medical decision making: Differential diagnosis for a geriatric patient with worsening dementia/behavioral problems including but not limited to and based on the above HPI, review of systems and physical exam: Concerns for infection such as UTI or pneumonia. Alcohol intoxication. Cardiac issues or other medical problems to be ruled out prior to a geriatric/psychiatric admission Orders placed to evaluate differential diagnosis based on the above differential, HPI and physical exam Lab work, chest X-ray and ekg ordered to evaluate the pathologies and to clear the patient medically prior EKG: Rate 64 time 1719 normal sinus rhythm, No ST-T changes, no ectopy, normal MS & QRS intervals, This was reviewed and interpreted by myself the ER physician at 1725. - EKG shows no ischemic changes. - Blood alcohol level is negative, as well as salicylate and Tylenol. - Drug screen is negative - No anemia. - BUN and creatinine are within normal limits. -Sodium was a bit elevated likely due to dehydration. She received fluids. Urinalysis is still pending at shift change. Patient has received 2 doses of Ativan and Haldol. Care assumed at change of shift patient has required a couple of doses of Geodon throughout the day. Discussed with midlevel at [facility] they have accepted patient transfer Dr. Cancino is receiving. Lab Data 08/21/23 16:39 08/21/23 16:39 Laboratory Results WBC 4.04 10^3/uL (3.29-11.43) 08/21/23 16:39 RBC 3.79 10^6/uL (3.85-5.65) L 08/21/23 16:39 Hgb 11.50 g/dL (11.27-16.99) 08/21/23 16:39 Hct 34.9 % (36-47) L 08/21/23 16:39 MCV 92.1 fl (85-98) 08/21/23 16:39 MCH 30.3 pg (27-33) 08/21/23 16:39 MCHC 33.0 g/dL (30-55) 08/21/23 16:39 RDW 13.9 % (12.1-15.1) 08/21/23 16:39 Plt Count 156 10^3/cmm (157-399) L 08/21/23 16:39 MPV 10.1 fL (7.4-10.4) 08/21/23 16:39 Neut % (Auto) 59.4 % 08/21/23 16:39 Lymph % (Auto) 29.2 % 08/21/23 16:39 Camas % (Auto) 8.2 % 08/21/23 16:39 Eos % (Auto) 2.5 % 08/21/23 16:39 Baso % (Auto) 0.5 % 08/21/23 16:39 Neut # (Auto) 2.40 10^3/uL (1.8-7.7) 08/21/23 16:39 Lymph # (Auto) 1.2 10^3/uL (0.8-4.8) 08/21/23 16:39 Camas # (Auto) 0.3 10^3/uL (0.2-0.9) 08/21/23 16:39 Eos # (Auto) 0.1 10^3/uL (0.0-0.8) 08/21/23 16:39 Baso # (Auto) 0.0 10^3/uL (0.0-0.1) 08/21/23 16:39 Nucleated RBC % (auto) 0 % 08/21/23 16:39 Nucleated RBCs # 0.0 /100WBC 08/21/23 16:39 Sodium 147 mmol/L (136-145) H 08/21/23 16:39 Potassium 3.6 mmol/L (3.5-5.1) 08/21/23 16:39 Chloride 110 mmol/L (98-107) H 08/21/23 16:39 Carbon Dioxide 28 mmol/L (22-29) 08/21/23 16:39 Anion Gap 12.6 (5-19) 08/21/23 16:39 BUN 12 mg/dL (8-23) 08/21/23 16:39 Creatinine 0.8 mg/dL (0.5-0.9) 08/21/23 16:39 GFR Calculation 72.7 mL/min (90-130) L 08/21/23 16:39 Glucose 107 mg/dL (65-115) 08/21/23 16:39 Calculated Osmolality 304 mOsm/kg (285-295) H 08/21/23 16:39 Calcium 8.4 mg/dL (8.5-10.5) L 08/21/23 16:39 Total Bilirubin 0.4 mg/dL (0.15-1.2) 08/21/23 16:39 AST 14 U/L (0-32) 08/21/23 16:39 ALT 9 U/L (0-33) 08/21/23 16:39 Alkaline Phosphatase 48 U/L (35-105) 08/21/23 16:39 Total Protein 6.1 g/dL (6.6-8.7) L 08/21/23 16:39 Albumin 3.8 g/dL (3.5-5.2) 08/21/23 16:39 Globulin 2.3 g/dL (1.3-4.6) 08/21/23 16:39 TSH 2.62 uIU/mL (0.27-4.20) 08/21/23 16:39 Urine Color Yellow (Yellow) 08/21/23 21:17 Urine Appearance Clear (CLEAR) 08/21/23 21:17 Urine pH 7 (5-7) 08/21/23 21:17 Ur Specific [place] 1.010 (1.005-1.030) 08/21/23 21:17 Urine Protein Neg (Negative) 08/21/23 21:17 Urine Glucose (UA) Norm (Normal) 08/21/23 21:17 Urine Ketones Negative (Negative) 08/21/23 21:17 Urine Blood Neg (Negative) 08/21/23 21:17 Urine Nitrate Negative (Negative) 08/21/23 21:17 Urine Bilirubin Neg (Negative) 08/21/23 21:17 Urine Urobilinogen Neg mg/dL (Negative) 08/21/23 21:17 Ur Leukocyte Esterase Negative (Negative) 08/21/23 21:17 Urine RBC 0-4 /hpf (0-2) H 08/21/23 21:17 Urine WBC 0-4 /hpf (0-5) H 08/21/23 21:17 Ur Squamous Epith Cells 0-4 /hpf (0-5) H 08/21/23 21:17 Amorphous Sediment Not Reportable 08/21/23 21:17 Urine Bacteria Trace /hpf (NONE) 08/21/23 21:17 Urine Mucus Trace /hpf 08/21/23 21:17 Salicylates < 0.3 mg/dL (3-10) L 08/21/23 16:39 Urine Opiates Screen Negative ng/mL (Negative) 08/21/23 21:17 Acetaminophen < 5.0 ug/mL (10-30) L 08/21/23 16:39 Ur Barbiturates Screen Negative ng/mL (Negative) 08/21/23 21:17 Ur Phencyclidine Scrn Negative ng/mL (Negative) 08/21/23 21:17 Ur Amphetamines Screen Negative ng/mL (Negative) 08/21/23 21:17 U Benzodiazepines Scrn Positive ng/mL (Negative) H 08/21/23 21:17 Urine Cocaine Screen Negative ng/mL (Negative) 08/21/23 21:17 U Marijuana (THC) Screen Negative ng/mL (Negative) 08/21/23 21:17 Ethyl Alcohol < 10 mg/dL (0-10) 08/21/23 16:39 Adenovirus (PCR) Not detected (NOT DETECT) 08/22/23 09:22 C. pneumoniae DNA (PCR) Not detected (NOT DETECT) 08/22/23 09:22 Coronavirus 229E (PCR) Not detected (NOT DETECT) 08/22/23 09:22 Human Metapneumovir PCR Not detected (NOT DETECT) 08/22/23 09:22 Influenza A (H1) PCR Not detected (NOT DETECT) 08/22/23 09:22 Influ A (H1/09) PCR Not detected (NOT DETECT) 08/22/23 09:22 Influenza A (H3) PCR Not detected (NOT DETECT) 08/22/23 09:22 Influenza Type A (PCR) Not detected (NOT DETECT) 08/22/23 09:22 Influenza Type B (PCR) Not detected (NOT DETECT) 08/22/23 09:22 M. pneumoniae (PCR) Not detected (NOT DETECT) 08/22/23 09:22 Parainfluenza 1 (PCR) Not detected (NOT DETECT) 08/22/23 09:22 Parainfluenza 2 (PCR) Not detected (NOT DETECT) 08/22/23 09:22 Parainfluenza 3 (PCR) Not detected (NOT DETECT) 08/22/23 09:22 Parainfluenza 4 (PCR) Not detected (NOT DETECT) 08/22/23 09:22 RSV Type A (PCR) Not detected (NOT DETECT) 08/22/23 09:22 RSV Type B (PCR) Not detected (NOT DETECT) 08/22/23 09:22 Entero/Rhino (PCR) Not detected (NOT DETECT) 08/22/23 09:22 SARS-CoV-2 (PCR) Not detected (NOT DETECT) 08/22/23 09:22 Discharge Plan Discharge Patient Disposition: Xfer Psychiatric Hosp Clinical Impression: Advanced dementia, Behavioral change Condition: Stable Coding Level of Care Code ED Fishing Vessel Deckhand for Josué Ash
[2023-08-21 17:15] LABS: Alanine Aminotransferase 9 U/L (0-33); Albumin Level 3.8 g/dL (3.5-5.2); Alkaline Phosphatase 48 U/L (35-105); Anion Gap 12.6 (5-19); Aspartate Amino Transferase 14 U/L (0-32); Blood Urea Nitrogen 12 mg/dL (8-23); Calcium 8.4 mg/dL (8.5-10.5); Carbon Dioxide 28 mmol/L (22-29); Chloride 110 mmol/L (98-107); Creatinine Clr Calc Pharmacy 89.1648; Globulin 2.3 g/dL (1.3-4.6); Glomerular Filtration Rate 72.7 mL/min (90-130); Glucose 107 mg/dL (65-115); Osmolality Calculated 304 mOsm/kg (285-295); Potassium 3.6 mmol/L (3.5-5.1); Sodium 147 mmol/L (136-145); Thyroid Stimulating Hormone 2.62 uIU/mL (0.27-4.20); Total Bilirubin 0.4 mg/dL (0.15-1.2); Total Protein 6.1 g/dL (6.6-8.7)
[2023-08-21] MEDS: sodium chloride 0.9% 1,000 ML 999 ML IV (17:16)
[2023-08-21 17:18] LABS: Acetaminophen < 5.0 ug/mL (10-30); Alcohol Level < 10 mg/dL (0-10); Salicylate < 0.3 mg/dL (3-10)
[2023-08-21] MEDS: LORazepam 2 mg/mL INJ 10 mL MDV 1 MG IV ×2 (18:03→18:38)
[2023-08-21] MEDS: haloperidol inj 5 mg/mL INJ 1 mL IVP ×3 (18:03→23:28)
[2023-08-21 21:32] LABS: Bacteria Urine TRACE /hpf; Bilirubin Urine Neg (Negative); Blood Urine Neg (Negative); Glucose Urine UA Norm (Normal); Ketones Urine Negative (Negative); Leukocyte Esterase Urine Negative (Negative); Mucus Urine TRACE /hpf; Nitrate Urine Negative (Negative); Protein Urine Neg (Negative); RBC Urine 0-4 /hpf (0-2); Squamous Epithelial Cell Urine 0-4 /hpf (0-5); Urine Appearance Clear (CLEAR); Urine Color Yellow (Yellow); Urobilinogen Urine Neg (Negative); WBC Urine 0-4 /hpf (0-5); pH Urine 7 (5-7)
[2023-08-21 21:34] LABS: Amphetamines Screen Urine Negative (Negative); Barbiturates Screen Urine Negative (Negative); Benzodiazepines Screen Urine Positive (Negative); Cocaine Screen Urine Negative (Negative); Opiate Screen Urine Negative (Negative); PCP Screen Urine Negative (Negative); THC Screen Urine Negative (Negative)
[2023-08-21] MEDS: LORazepam 2 mg/mL INJ 10 mL MDV 1 MG IVP (23:29)
[2023-08-21] MEDS: ketamine 100 mg/mL Inj 5 mL IVP (23:55)
[2023-08-22] VITALS (12 sets, daily range): BP systolic 109–154; BP diastolic 63–89; PULSE 57–82; RESP 15–18; O2SAT 93–100
--- NOTE | 2023-08-22 02:38 | PC.NURSE ---
Son Denny called and advised that she needs POA paperwork before she is able to move forward with transfer request. This nurse attempted to call x2, no answer
[2023-08-22] MEDS: ketamine 100 mg/mL Inj 5 mL IVP (03:16)
[2023-08-22] MEDS: ziprasidone 20 mg/mL SDV IM ×2 (03:19→07:04)
[2023-08-22] MEDS: water for injection-sterile 10 ML (03:21)
--- NOTE | 2023-08-22 06:24 | PC.NURSE ---
Spouse called ER back and advised that no one has POA over this patient, relayed this info to [facility], [facility] will not accept pt without POA paperwork
--- NOTE | 2023-08-22 07:00 | PC.NURSE ---
This RN and staff air defense officer Lon into room to serve 96 hour paperwork. Pt did not verbalize further questions.
[2023-08-22] MEDS: LORazepam 2 mg/mL INJ 10 mL MDV 1 MG IVP (07:04)
[2023-08-22] MEDS: water for injection-sterile 10 ML 1.19999999999999996 ML (07:04)
[2023-08-22 11:11] LABS: Adenovirus Not Detected (NOT DETECT); Chlamydia Pneumoniae Not Detected (NOT DETECT); Coronavirus 229E,HKU1,NL63,OC4 Not Detected (NOT DETECT); Human Metapneumovirus Not Detected (NOT DETECT); Human Rhinovirus/Enterovirus Not Detected (NOT DETECT); Influenza A Not Detected (NOT DETECT); Influenza A H1 Not Detected (NOT DETECT); Influenza A H1-2009 Not Detected (NOT DETECT); Influenza A H3 Not Detected (NOT DETECT); Influenza B Not Detected (NOT DETECT); Mycoplasma Pneumoniae Not Detected (NOT DETECT); Parainfluenza Virus Type 1 Not Detected (NOT DETECT); Parainfluenza Virus Type 2 Not Detected (NOT DETECT); Parainfluenza Virus Type 3 Not Detected (NOT DETECT); Parainfluenza Virus Type 4 Not Detected (NOT DETECT); Respiratory Syncytial Virus A Not Detected (NOT DETECT); Respiratory Syncytial Virus B Not Detected (NOT DETECT); SARS-COV-2 Not Detected (NOT DETECT)
[2023-08-22] MEDS: ziprasidone 20 mg/mL SDV 10 MG IM (13:55)
--- NOTE | 2023-08-22 14:13 | PC.NURSE ---
pt incontinent of stool and urine. Skin cleansed and dried, brief placed although pt started pulling at it almost immediately. Linens changed and chux placed under pt. Pt tolerated fairly well with assistance of other staff. Another dose of Geodon also placed as pt is increasing in agitation and aggression, as well as trying to get out of bed.
[2023-08-22] MEDS: LORazepam 2 mg/mL INJ 10 mL MDV 1 MG IV (22:18)
[2023-08-22] MEDS: haloperidol inj 5 mg/mL INJ 1 mL IVP (22:18)
== END 2023-08-22 22:30 ==
PROVIDERS: Emergency Medicine; Emergency Provider Family Medicine
DX: Z87.891 Personal history of nicotine dependence (principal); Z11.52 Encounter for screening for COVID-19
CPT/HCPCS: 36415; 80053; 80306; 80307; 81001; 84443; 85025; 87486; 87581; 87633; 93005; 96361; 96372; 96374; 96375; 96376; 99285; J1630; J2060; J3486; J3490; J7030

== ENCOUNTER → 2023-09-17 08:47 | Outpatient (BNVA) | payer MEDICARE, BC, SELFPAY | PROVIDERS: Visit Provider Specialist | DX: G30.9 Alzheimer's disease, unspecified (principal); F02.80 Dementia in other diseases classified elsewhere, unspecified severity, without behavioral disturbance, psychotic disturbance, mood disturbance, and anxiety | CPT/HCPCS: 99214; 99215 ==